=== PATIENT | female | born 1930 | race Caucasian/White ===

== ENCOUNTER 2017-08-24 12:57 | Inpatient (IN) | payer MEDICARE ==
--- NOTE | 2017-08-24 13:30 | ED Physician Chart ---
ED Chief Complaint/HPI - Patient Information Date Seen:: 08/24/17 Time Seen:: 13:10 Chief Complaint:: Syncope with Multiple Falls History of Present Illness:: onset x one week of multiple falls and syncope with back pain; no report of H/As , neck pain, C/P, SOB, Abd. pain, A/N/V/D/C, fever, chills, or urinary s/s Allergies:: Allergies Allergy/AdvReac Type Severity Reaction Status Date / Time cephalexin [From Keflex] AdvReac Verified 08/24/17 13:10 Vitals:: Vital Signs - 8 hr 08/24/17 13:10 Temp 98.3 F HR 66 RR 14 BP 124/64 O2 Sat % 97 Historian:: Patient, EMS Review:: Nurse's Note Reviewed, Old Chart Reviewed, EMS run form Reviewed, Transfer documents Reviewed ED Review of Systems - Review of Systems General/Constitutional: Fever, No chills, No weight loss, Weakness, No diaphoresis, No edema, No loss of appetite Skin: Skin lesions, No rash, No bruising Head: No headache, No light-headedness Eyes: No loss of vision, No pain, No diplopia ENT: No earache, No nasal drainage, No sore throat, No tinnitus Neck: No neck pain, No swelling, No thyromegaly, No stiffness, No mass noted Cardio Vascular: No chest pain, No palpitations, No PND, No orthopnea, No edema Pulmonary: No SOB, No cough, No sputum, No wheezing GI: No nausea, No vomiting, No diarrhea, No pain, No melena, No hematochezia, No constipation, No hematemesis G/U: No dysuria, No frequency, No hematuria Musculoskeletal: Bone or joint pain, Back pain, Muscle pain Endocrine: No polyuria, No polydipsia Psychiatric: No prior psych history, No depression, No anxiety, No suicidal ideation, No homicidal ideation, No auditory hallucination, No visual hallucination Hematopoietic: No bruising, No lymphadenopathy Allergic/Immuno: No urticaria, No angioedema Neurological: Syncope, No focal symptoms, Weakness, No paresthesia, No headache , No seizure, Dizziness, Confusion, Vertigo ED Past Medical History - Past Medical History Obtainable: Yes Past Medical History: HTN, CAD, Dyslipidemia, Arthritis, Dementia Family History: Heart disease, Diabetes Melitus, HTN Social History: Non Smoker, No Alcohol, No Drug Use, Single, Care Facility Surgical History: Appendectomy, Hysterectomy Psychiatricy History: Dementia Medication: Reviewed Family Medical History - Family Member Mother Hx Family Cancer: No Hx Family Stroke: No Hx Family Diabetes: No Hx Family Dementia: No Hx Family AIDS: No Hx Family Hepatitis: No Hx Family Tuberculosis: No ED Physical Exam - Physical Examination General/Constitutional: Awake, Well-developed, well-nourished, Alert, No distress, GCS 15, Non-toxic appearing, Ambulatory Head: Atraumatic Eyes: Lids, conjuctiva normal, PERRL, EOMI Skin: Nl inspection, No rash, No skin lesions, No ecchymosis, Well hydrated, No lymphadenopathy ENMT: External ears, nose nl, Nasal exam nl, Lips, teeth, gums nl Neck: Nontender, Full ROM w/o pain, No JVD, No nuchal rigidity, No bruit, No mass, No stridor Respiratory: Nl effort/Exclusion, Clear to Auscultation, No Wheeze/Rhonchi/Rales Cardio Vascular: RRR, No murmur, gallop, rubs, NL S1 S2 GI: No tenderness/rebounding/guarding, No organomegaly, No hernia, Normal BS's, Nondistended, No mass/bruits, No McBurney tenderness : No CVA tenderness Extremities: No tenderness or effusion, Full ROM, normal strength in all extremities, No edema, Normal digits & nails Neuro/Psych: DTR's symmetric, Normal sensory exam, Normal motor strength, Judgement/insight normal, Mood normal, Normal gait, No focal deficits Other Neuro/Psych comments:: Disoriented and Confused Misc: Normal back, No paraspinal tenderness ED Labs/Radiology/EKG Results - Lab Results Comments:: Na+: 131 - EKG Interpretations EKG Time:: 13:34 Rate & Rhythm: 55; SB Comments:: non-specific st-t changes ED Septic Shock - . Is Septic Shock (SBP<90, OR Lactate>4 mmol\L) present?: No - <6hrs of presentation: Vital Signs: Vital Signs - 8 hr 08/24/17 13:10 Temp 98.3 F HR 66 RR 14 BP 124/64 O2 Sat % 97 ED Reassessment (Disposition) - Reassessment Reassessment Condition:: Improved - Diagnosis Diagnosis:: Dx: hyponatremia; Back Pain; Syncope; S/P Falls; Hip Pain; - Aftercare/Follow up Instructions Aftercare/Follow-Up Instructions:: Counseled pt regarding lab results/diagnosis & need follow up, Counseled pt & family regarding lab results/diagnosis & need follow up - Patient Disposition Discharge/Transfer:: Acute Care w/in this hosp Accepting Physician:: Dr. Morgan Time Called:: 1445 Time Responded:: 14:45 Admitted to:: Telemetry Spoke to:: Dr. Morgan Admitting Medical Physician:: Dr. Morgan Condition at Disposition:: Stable, Improved
[2017-08-24 13:55] LABS: % BASOPHILS 0.6 % (0.0-2.0); % EOSINOPHILS 2.6 % (0.0-5.0); % LYMPHOCYTES 22.9 % (20.0-50.0); % MONOCYTES 9.3 % (2.0-10.0); % NEUTROPHILS 64.6 % (40.0-80.0); HEMATOCRIT 30.9 % (41.0-60); HEMOGLOBIN 10.1 gm/dL (12-16); MEAN CELL VOLUME 89.4 fl (81-100); MEAN CORPUSCULAR HEMOGLOBIN 29.3 pg (27.0-31.0); MEAN CORPUSCULAR HGB CONC 32.7 pg (28.0-36.0); MEAN PLATELET VOLUME 8.1 fl; NEUTROPHILE ABSOLUTE 7.2 Th/cmm (1.8-8.0); PLATELET COUNT 210 Th/cmm (150-400); RED BLOOD COUNT 3.46 Mil/cmm (3.80-5.20); RED CELL DISTRIBUTION WIDTH 16.3 % (11.5-20.0); WHITE BLOOD COUNT 11.1 Th/cmm (4.8-10.8)
[2017-08-24 14:09] LABS: INR 0.89 (0.5-1.4); PROTHROMBIN TIME (TEST) 9.2 SECONDS (9.5-11.5)
[2017-08-24 14:13] LABS: ALB/GLOB RATIO 1.5 (1.0-1.8); ALKALINE PHOSPHATASE 59 U/L (34-104); ANION GAP 8.5 (7.0-16.0); BILIRUBIN,TOTAL 0.8 mg/dL (0.3-1.0); BUN - UREA NITROGEN 40 mg/dL (7-25); BUN/CREATININE RATIO 30.8; CALCIUM SERUM 9.1 mg/dL (8.6-10.3); CARBON DIOXIDE 23.6 mEq/L (21.0-31.0); CHLORIDE 103 mEq/L (98-107); CHOLESTEROL 217 mg/dL (<200); CREATININE - SERUM 1.3 mg/dL (0.6-1.2); GLUCOSE 91 mg/dL (70-105); POTASSIUM SERUM 4.1 mEq/L (3.5-5.1); SGOT 14 U/L (13-39); SGPT/ALT 7 U/L (7-52); SODIUM SERUM 131 mEq/L (136-145); TRIGLYCERIDES 145 mg/dL (<150)
--- NOTE | 2017-08-24 14:34 | Diagnostic Imaging Report ---
CHEST X-RAY: AP view INDICATION: pain COMPARISON: None FINDINGS: Chronic changes are seen with no focal consolidation or effusions. Eight and ninth right posterior rib fractures are seen indeterminate but possibly subacute. No evidence of pneumothorax. Heart size normal. Atherosclerosis is noted. Degenerative changes of the spine are noted. IMPRESSION: No focal consolidation identified Age-indeterminate right eighth and ninth posterior rib fractures probably subacute. Please correlate with clinical findings. No evidence of pneumothorax. Atherosclerotic vascular disease.
--- NOTE | 2017-08-24 15:30 | Diagnostic Imaging Report ---
Pelvis single view Indication: Pain rule out fracture Comparison: Right hip x-ray the same day and CT abdomen and pelvis the same day Findings: Moderate degenerative changes of right hip joint and moderate degenerative changes of the left hip joint is noted. No evidence of acute fracture or dislocation. Degenerative changes of lower lumbar spine are noted. Atherosclerosis is noted. There is 1 cm sclerosis along the right superior acetabulum possibly a bone island. Impression: No evidence of an acute fracture. Degenerative changes. In the setting of trauma, if clinical symptoms persist and there is continued concern for an occult fracture, follow up exams in 5-7 days is suggested.
--- NOTE | 2017-08-24 15:30 | Diagnostic Imaging Report ---
Right hip 2 views Indication: Pain rule out fracture Comparison: Pelvis x-ray the same day Findings: Degenerative changes right hip joint are noted with moderate narrowing of the hip joint at the superior medial aspect. No evidence of acute fracture or dislocation. 1 cm sclerotic density possibly a bone island is seen within the acetabulum. Impression: No evidence of an acute fracture. Degenerative changes. In the setting of trauma, if clinical symptoms persist and there is continued concern for an occult fracture, follow up exams in 5-7 days is suggested.
--- NOTE | 2017-08-24 15:31 | Diagnostic Imaging Report ---
CT abdomen and pelvis without intravenous contrast Indication: Abdominal pain, back pain, rule out aortic aneurysm Comparison: None, Technique: Axial images were obtained from the lung bases to the bilateral proximal femurs without IV contrast. Coronal reconstructions were made. total DLP: 354, CTDI7.4 FINDINGS: There is a 7 mm nodule of the left lung base. Additional 3 mm left basal nodule is noted. Atelectatic and hypodensity changes of the lungs are noted. Chronic changes of the lung bases also noted. Assessment of the solid organs is limited due to lack of IV contrast. No evidence of focal hepatic lesions. There may be a tiny gallstone. No focal splenic lesions. 1CM calcification is seen along the body of the pancreas which may represent pancreatic calcification or splenic artery calcification. No focal adrenal lesions. Mild nonspecific bilateral perinephric inflammatory changes are seen. No hydronephrosis or nephrolithiasis. Distended urinary bladder is noted. There is moderate amount of stool with gas-filled loops of bowel noted. The appendix is not visualized. Heavy atherosclerotic vascular disease of the abdominal aorta and branches are noted. Assessment of the abdominal aorta was limited due to lack of IV contrast. There is no evidence of any aortic aneurysm. No evidence of free fluid or free air. There is large area of high density seen along the right gluteal region measuring 5.1 x 5.3 cm partially visualized with surrounding inflammatory changes. Findings may be due to a large intramuscular hematoma. Chronic appearing right lower rib fractures are noted. Advanced degenerative changes of the spine are seen greatest in the lower lumbar spine with multilevel disc space loss of height. There appears to be transitional vertebral body anatomy. A few sclerotic lesions are seen within the spine and right pelvis probably representing incidental bone islands. No evidence of an acute fracture. IMPRESSION: Large high density mass lesion seen along the right intramuscular gluteal region measuring 5.1 x 5.3 cm. Findings is probably due to a large intramuscular hematoma in this region. Please correlate with clinical findings. Follow-up is recommended to ensure resolution. No evidence of the abdominal aortic aneurysm. Heavy atherosclerotic vascular disease was noted. Note evaluation of the abdominal aorta was limited due to lack of IV contrast. No evidence of acute fracture. Possible tiny gallstone. Ultrasound would further clarify. 7 mm left basal nodule which may be due to infectious inflammatory neoplastic process. Additional 3 mm left basal nodule is also noted. Recommend correlation with old exams if available. Alterably, follow up CT chest in 3-4 months is recommended for further assessment. Small scar densities of the spine and pelvis probably representing incidental bone island. Consider follow surveillance indicated Degenerative changes. Please refer to above for complete details.
--- NOTE | 2017-08-24 15:31 | Diagnostic Imaging Report ---
Head CT without intravenous contrast Indication: Syncope Comparison: None Technique: Axial images were obtained from the vertex to the skull base without IV contrast. Coronal reconstructions were made. Total DLP: 558, CTDI33 FINDINGS: Images of the brain obtained without contrast demonstrate no evidence of an acute hemorrhage. Atrophy is noted. Moderate supratentorial white matter disease is noted. Chronic appearing left basal ganglial lacunar infarct is noted. The ventricles and basal cisterns are patent. No mass effect or midline shift. Atherosclerosis is noted. There is mucosal thickening of the paranasal sinuses. Small amount of fluid is seen within the left mastoid air cells. IMPRESSION: No evidence of an acute intracranial hemorrhage. Atrophy. Moderate supratentorial white matter disease which is nonspecific and may be due to chronic microvessel ischemia. Chronic appearing lacunar left basal ganglia infarct. Atherosclerotic vascular disease. Mild left mastoid air cell disease.
[2017-08-24] MEDS ORDERED: Maalox 30 mL Cup PO PRN (19:13)
[2017-08-24] MEDS ORDERED: Ipratropium Neb 0.5 mg/2.5 mL UD IH PRN (19:13)
[2017-08-24] MEDS ORDERED: Albuterol Nebulizer 2.5mg/3mL HHN PRN (19:13)
[2017-08-24] MEDS ORDERED: D5-0.45NS 1,000 ML IV SCH (19:15)
[2017-08-25 03:09] VITALS: BP 149/42
[2017-08-25 06:00] LABS: % BASOPHILS 0.5 % (0.0-2.0); % EOSINOPHILS 3.7 % (0.0-5.0); % LYMPHOCYTES 20.2 % (20.0-50.0); % MONOCYTES 10.1 % (2.0-10.0); % NEUTROPHILS 65.5 % (40.0-80.0); HEMOGLOBIN 9.6 gm/dL (12-16); MEAN CELL VOLUME 89.7 fl (81-100); MEAN CORPUSCULAR HEMOGLOBIN 30.8 pg (27.0-31.0); MEAN CORPUSCULAR HGB CONC 34.3 pg (28.0-36.0); MEAN PLATELET VOLUME 8.8 fl; PLATELET COUNT 220 Th/cmm (150-400); RED BLOOD COUNT 3.12 Mil/cmm (3.80-5.20); RED CELL DISTRIBUTION WIDTH 15.8 % (11.5-20.0); WHITE BLOOD COUNT 10.8 Th/cmm (4.8-10.8)
[2017-08-25 06:23] LABS: ANION GAP 8.4 (7.0-16.0); BUN - UREA NITROGEN 40 mg/dL (7-25); BUN/CREATININE RATIO 33.3; CALCIUM SERUM 8.7 mg/dL (8.6-10.3); CARBON DIOXIDE 26.2 mEq/L (21.0-31.0); CHLORIDE 104 mEq/L (98-107); CREATININE - SERUM 1.2 mg/dL (0.6-1.2); GLUCOSE 95 mg/dL (70-105); POTASSIUM SERUM 4.6 mEq/L (3.5-5.1); SODIUM SERUM 134 mEq/L (136-145)
[2017-08-25 07:23] LABS: URINE BILIRUBIN NEGATIVE (NEGATIVE); URINE BLOOD TRACE (NEGATIVE); URINE COLOR YELLOW; URINE GLUCOSE (UA) NEGATIVE (NEGATIVE); URINE KETONE TRACE mg/dL (NEGATIVE)
[2017-08-25 07:24] LABS: URINE PROTEIN NEGATIVE (NEGATIVE); URINE UROBILINOGEN 0.2 E.U./dL (0.2 - 1.0)
[2017-08-25 07:28] LABS: URINE BACTERIA FEW /hpf (NONE SEEN); URINE EPITHELIAL CELLS MODERATE /lpf (FEW); URINE WBC 0-2 /hpf (0-5)
[2017-08-25 08:21] LABS: TSH 2.76 uIU/ml (0.34-5.60)
--- NOTE | 2017-08-25 11:51 | Internal Medicine Prog Note ---
Internal Medicine Subjective - Subjective Service Date: 08/25/17 ([facility] [id number]) Internal Medicine Objective - Results Result Diagrams: 08/25/17 05:17 08/25/17 05:17 Recent Labs: Laboratory Last Values WBC 10.8 Th/cmm (4.8-10.8) 08/25/17 05:17 RBC 3.12 Mil/cmm (3.80-5.20) L 08/25/17 05:17 Hgb 9.6 gm/dL (12-16) L 08/25/17 05:17 Hct 28.0 % (41.0-60) L 08/25/17 05:17 MCV 89.7 fl (81-100) 08/25/17 05:17 MCH 30.8 pg (27.0-31.0) 08/25/17 05: MCHC Differential 34.3 pg (28.0-36.0) 08/25/17 05:17 RDW 15.8 % (11.5-20.0) 08/25/17 05:17 Plt Count 220 Th/cmm (150-400) 08/25/17 05:17 MPV 8.8 fl 08/25/17 05:17 Neutrophils % 65.5 % (40.0-80.0) 08/25/17 05:17 Lymphocytes % 20.2 % (20.0-50.0) 08/25/17 05:17 Monocytes % 10.1 % (2.0-10.0) H 08/25/17 05:17 Eosinophils % 3.7 % (0.0-5.0) 08/25/17 05:17 Basophils % 0.5 % (0.0-2.0) 08/25/17 05:17 PT 9.2 SECONDS (9.5-11.5) L 08/24/17 13:48 INR 0.89 (0.5-1.4) 08/24/17 13:48 Sodium 134 mEq/L (136-145) L 08/25/17 05:17 Potassium 4.6 mEq/L (3.5-5.1) 08/25/17 05:17 Chloride 104 mEq/L (98-107) 08/25/17 05:17 Carbon Dioxide 26.2 mEq/L (21.0-31.0) 08/25/17 05:17 Anion Gap 8.4 (7.0-16.0) 08/25/17 05:17 BUN 40 mg/dL (7-25) H 08/25/17 05:17 Creatinine 1.2 mg/dL (0.6-1.2) 08/25/17 05:17 Est GFR ( Amer) TNP 08/25/17 05:17 Est GFR (Non-Af Amer) TNP 08/25/17 05:17 BUN/Creatinine Ratio 33.3 08/25/17 05:17 Glucose 95 mg/dL (70-105) 08/25/17 05:17 Calcium 8.7 mg/dL (8.6-10.3) 08/25/17 05:17 Total Bilirubin 0.8 mg/dL (0.3-1.0) 08/24/17 13:48 AST 14 U/L (13-39) 08/24/17 13:48 ALT 7 U/L (7-52) 08/24/17 13:48 Alkaline Phosphatase 59 U/L (34-104) 08/24/17 13:48 Ammonia 28 umol/L (16-53) 08/25/17 05:17 Creatine Kinase 179 U/L (30-223) 08/24/17 13:48 Troponin I 0.01 ng/mL (0.01-0.05) 08/24/17 13:48 B-Natriuretic Peptide 63.4 pg/mL (5.0-100.0) 08/24/17 13:48 Total Protein 5.9 gm/dL (6.0-8.3) L 08/24/17 13:48 Albumin 3.5 gm/dL (3.7-5.3) L 08/24/17 13:48 Globulin 2.4 gm/dL 08/24/17 13:48 Albumin/Globulin Ratio 1.5 (1.0-1.8) 08/24/17 13:48 Triglycerides 145 mg/dL (<150) 08/24/17 13:48 Cholesterol 217 mg/dL (<200) H 08/24/17 13:48 LDL Cholesterol Direct 161 mg/dL (75-193) 08/24/17 13:48 HDL Cholesterol 53 mg/dL (23-92) 08/24/17 13:48 TSH 2.76 uIU/ml (0.34-5.60) 08/25/17 05:17 Urine Source RANDOM 08/25/17 04:40 Urine Color YELLOW 08/25/17 04:40 Urine Clarity CLEAR (CLEAR) 08/25/17 04:40 Urine pH 6.0 (4.6 - 8.0) 08/25/17 04:40 Ur Specific [place] 1.015 (1.005-1.030) 08/25/17 04:40 Urine Protein NEGATIVE mg/dL (NEGATIVE) 08/25/17 04:40 Urine Glucose (UA) NEGATIVE mg/dL (NEGATIVE) 08/25/17 04:40 Urine Ketones TRACE mg/dL (NEGATIVE) 08/25/17 04:40 Urine Blood TRACE (NEGATIVE) 08/25/17 04:40 Urine Nitrate NEGATIVE (NEGATIVE) 08/25/17 04:40 Urine Bilirubin NEGATIVE (NEGATIVE) 08/25/17 04:40 Urine Ictotest NEGATIVE (NEGATIVE) 08/25/17 04:40 Urine Urobilinogen 0.2 E.U./dL (0.2 - 1.0) 08/25/17 04:40 Ur Leukocyte Esterase NEGATIVE (NEGATIVE) 08/25/17 04:40 Urine RBC 2-5 /hpf (0-5) 08/25/17 04:40 Urine WBC 0-2 /hpf (0-5) 08/25/17 04:40 Ur Epithelial Cells MODERATE /lpf (FEW) 08/25/17 04:40 Urine Bacteria FEW /hpf (NONE SEEN) 08/25/17 04:40 Urine Mucus FEW /lpf (FEW) 08/25/17 04:40 - Physical Exam Vitals and I&O: Vital Signs Temp 98.7 F 08/25/17 10:17 Pulse 67 08/25/17 10:17 Resp 19 08/25/17 10:17 BP 147/63 08/25/17 10:17 Pulse Ox 98 08/25/17 10:17 Intake & Output 08/24/17 08/25/17 08/25/17 18:59 06:59 18:59 Intake Total 200 Balance 200 Weight (lbs) 125 lb Intake: Oral 200 Other: # Voids 2 # Bowel Movements 0 Active Medications: Current Medications Acetaminophen (Tylenol) 650 mg PO Q4H PRN PRN Reason: Pain Or Fever above 101 Stop: 10/23/17 19:12 Al Hydrox/Mg Hydrox/Simethicone (Maalox) 30 ml PO Q6H PRN PRN Reason: Dyspepsia Stop: 10/23/17 19:12 Albuterol Sulfate (Albuterol 2.5mg/3ml Neb Ud) 2.5 mg HHN Q2HRT PRN PRN Reason: Shortness of Breath or Wheeze Stop: 10/23/17 19:12 Allopurinol (Zyloprim) 100 mg PO DAILY CASSI Stop: 10/24/17 08:59 Last Admin: 08/25/17 09:01 Dose: 100 mg Cholecalciferol (Vitamin D3) 4,000 iu PO DAILY CASSI Stop: 10/24/17 08:59 Last Admin: 08/25/17 09:01 Dose: 4,000 iu Cyanocobalamin (Vitamin B12) 1,000 mcg PO DAILY CASSI Stop: 10/24/17 08:59 Last Admin: 08/25/17 09:01 Dose: 1,000 mcg Dextrose/Sodium Chloride (D5-0.45ns) 1,000 mls @ 80 mls/hr IV .[id number] CASSI Stop: 10/23/17 19:14 Last Admin: 08/24/17 20:16 Dose: 80 mls/hr Ipratropium [place] (Atrovent Neb 0.5mg/2.5ml) 0.5 mg IH Q2HRT PRN PRN Reason: Shortness of Breath or Wheeze Stop: 10/23/17 19:12 Losartan Potassium (Cozaar) 50 mg PO DAILY REPLACED BY [facility] Stop: 10/24/17 08:59 Last Admin: 08/25/17 09:01 Dose: 50 mg Memantine (Namenda) 10 mg PO BID CASSI Stop: 10/24/17 08:59 Last Admin: 08/25/17 09:01 Dose: 10 mg Mirtazapine (Remeron) 15 mg PO HS CASSI PRN Reason: Protocol Stop: 10/23/17 20:59 Last Admin: 08/24/17 20:39 Dose: 15 mg Ondansetron HCl (Zofran) 4 mg IV Q8H PRN PRN Reason: Nausea / Vomiting Stop: 10/23/17 19:12 Tramadol HCl (Ultram) 50 mg PO DAILY PRN PRN Reason: Pain (Mild) Stop: 10/23/17 19:10 Last Admin: 08/24/17 20:39 Dose: 50 mg Internal Medicine Assmt/Plan - Assessment Assessment: Acute Back pain Generalized Weakness Failure to thrive HTN CAD Dyslipidemia Arthritis Dementia Hyponatremia Acute Kidney Injury
[2017-08-25] MEDS ORDERED: D5-0.45NS 1,000 ML IV SCH (11:52)
--- NOTE | 2017-08-25 12:06 | Diagnostic Imaging Report ---
Carotid ultrasound HISTORY: Syncope COMPARISON: None Technique: Longitudinal and transverse sonographic sector images of the carotid arteries were obtained with doppler analysis. FINDINGS: Exam of the right side demonstrates mild to moderate generalized atherotic vascular disease. No evidence of elevated velocities. Exam of the left-sided demonstrates mild to moderate atherosclerotic vascular disease. Increased velocities of the left proximal common carotid arteries noted at 161cm/second. The velocity ratios are within normal limits. Antegrade vertebral artery flow is demonstrated bilaterally. IMPRESSION: Mild to moderate generalized atherosclerotic vascular disease. There is increased velocity of the left proximal common carotid artery which is probably related to vessel tortuosity and technical factors. Otherwise no evidence of hemodynamically significant stenosis.
--- NOTE | 2017-08-25 14:42 | History & Physical ---
ADMIT DATE: 08/24/2017 HISTORY OF PRESENT ILLNESS: This is an 87-year-old female who was sent here to [facility] for 1-week history of multiple falls, associated with back pain. The patient is a poor historian; however, the patient is able to express her pain level. The patient does not have any fevers or any chills or any abdominal pain. PAST MEDICAL HISTORY: Hypertension, CAD, dyslipidemia, arthritis, dementia. SOCIAL HISTORY: The patient lives in [facility], requiring 24-hour nursing care. SURGICAL HISTORY: Appendectomy and hysterectomy. MEDICATIONS: Please see medication sheet. REVIEW OF SYSTEMS: GENERAL: Denies any fever, any chills. CARDIOVASCULAR: Denies chest pain. RESPIRATORY: Denies any shortness of breath. GENITOURINARY: Denies any dysuria. MUSCULOSKELETAL: The patient complains of back pain. All other systems are reviewed by me and are negative. PHYSICAL EXAMINATION: GENERAL: This is an elderly female awake with some confusion in no apparent distress. VITAL SIGNS: Temperature 99.7, heart rate 67, blood pressure 147/62, respirations 19, O2 98%. HEENT: Head; normocephalic, atraumatic. NECK: Supple. No mass. LUNGS: Clear bilaterally and rhythm. ABDOMEN: Soft and nontender. LABORATORY DATA: WBC 10.8, H and H 9.6 and 28.0, platelets 220. Sodium 134, potassium 4.6, chloride 104, BUN 40, creatinine 1.2. Albumin 3.5. The patient has a urinalysis done and negative for any UTI. DIAGNOSTICS: The patient had a CT of abdomen and pelvis done and the impression is large high density mass lesions seen along the right intermuscular gluteal region measuring 5.1 x 5.3 cm. Finding is probably due to a large intermuscular hematoma in this region. No evidence of abdominal aortic aneurysm. Heavy atherosclerotic vascular disease was noted. No evidence of acute fracture, 7 mm left basal nodule, which may due to infectious, inflammatory or neoplastic process. Additional 3 mm left basal nodules also noted. Recommended correlation with old exam if available. Small ____ densities of the spine and pelvis, probably representing incidental island. Consider followup surveillance indicated, degenerative changes. The patient also had a chest x-ray done and the impression is no focal consolidation, atherosclerotic vascular disease. CT of the head was obtained. Impression is no evidence of acute intracranial hemorrhage. Hip x-ray was also done and the impression is no evidence of acute fracture. X-ray of the pelvis was also done as well. Impression, no evidence of acute fracture. ASSESSMENT: Acute back pain, generalized weakness, failure to thrive, hypertension, coronary artery disease, dyslipidemia, arthritis, dementia, frequent falls, hyponatremia, acute kidney injury. PLAN: We will get patient aggressive IV fluids. We will monitor patient's BUN and creatinine. We will get back PT eval. Also, do carotid ultrasound as well. Fall precautions will be initiated. Pain management. We will continue to monitor this patient. JOB# [id number]
--- NOTE | 2017-08-25 22:51 | Consultation ---
DATE OF CONSULTATION: 08/25/2017 HISTORY OF PRESENT ILLNESS: An 87-year-old female with multiple falls, syncope. The patient apparently yelling, screaming, trying to get up, on a one-to-one, confused, disoriented. Does not really what is going on or why she is here. PAST PSYCHIATRIC HISTORY: Unclear. SOCIAL HISTORY: Born in [place], , 3 children. She has an address in [place]. She states her children living in [place]. Apparently, the patient does have a history of dementia. MENTAL STATUS EXAMINATION: Stated age. Fair eye contact. Speech rambling. Yelling, nonsensical. Mood "okay." Affect flat. Thought processes were disoriented. No overt SI or HI. Unclear psychotic symptoms. Poor insight, poor judgment. PROVISIONAL DIAGNOSIS: History of dementia; psychosis, unspecified; dementia with behavioral disturbances. RECOMMENDATIONS AND PLAN: The patient will likely benefit from Geropsych placement as she appears unstable at this time, confused, disoriented with behaviors. PLAN: Continue Namenda, continue Remeron, continue orientation. She may need medication adjustments. JOB# [id number]
[2017-08-26 05:42] LABS: % BASOPHILS 0.5 % (0.0-2.0); % EOSINOPHILS 1.8 % (0.0-5.0); % LYMPHOCYTES 14.9 % (20.0-50.0); % MONOCYTES 9.7 % (2.0-10.0); % NEUTROPHILS 73.1 % (40.0-80.0); HEMATOCRIT 30.2 % (41.0-60); HEMOGLOBIN 10.3 gm/dL (12-16); MEAN CORPUSCULAR HEMOGLOBIN 30.5 pg (27.0-31.0); MEAN CORPUSCULAR HGB CONC 33.9 pg (28.0-36.0); MEAN PLATELET VOLUME 8.7 fl; NEUTROPHILE ABSOLUTE 8.4 Th/cmm (1.8-8.0); PLATELET COUNT 252 Th/cmm (150-400); RED BLOOD COUNT 3.36 Mil/cmm (3.80-5.20); RED CELL DISTRIBUTION WIDTH 16.4 % (11.5-20.0); WHITE BLOOD COUNT 11.5 Th/cmm (4.8-10.8)
[2017-08-26 05:50] LABS: ALB/GLOB RATIO 1.4 (1.0-1.8); ALKALINE PHOSPHATASE 67 U/L (34-104); ANION GAP 9.2 (7.0-16.0); BILIRUBIN,TOTAL 0.8 mg/dL (0.3-1.0); BUN - UREA NITROGEN 30 mg/dL (7-25); BUN/CREATININE RATIO 33.3; CALCIUM SERUM 9.5 mg/dL (8.6-10.3); CHLORIDE 104 mEq/L (98-107); CREATININE - SERUM 0.9 mg/dL (0.6-1.2); GLUCOSE 101 mg/dL (70-105); POTASSIUM SERUM 4.2 mEq/L (3.5-5.1); SGOT 21 U/L (13-39); SGPT/ALT 11 U/L (7-52); SODIUM SERUM 135 mEq/L (136-145)
--- NOTE | 2017-08-26 08:55 | Progress Notes ---
DATE: 08/26/2017 SUBJECTIVE: Chart reviewed and the patient interviewed. Also discussed the patient's condition with the staff and reviewed records and labs. The patient did not sleep most of last night. She also is still restless and she is still easily agitated. She also is having difficulty following any of staff directions. The patient also is easily agitated and aggressive with the staff. She also is still in angry and in irritable moods. Otherwise, the patient is compliant with taking her medications with no side effects of medications. She is currently not taking any antipsychotic medications. ASSESSMENT: The patient is still confused and agitated. TREATMENT PLAN: We will monitor her behavior and her condition closely. Also, we will start the patient on Seroquel and we will adjust the dose. Also, the patient will need to be in Geropsych to monitor her behavior and to work on her agitation and irritability. [facility]# [id number]
--- NOTE | 2017-08-26 12:17 | Internal Medicine Prog Note ---
Internal Medicine Subjective - Subjective Service Date: 08/26/17 ([facility] [id number]) Internal Medicine Objective - Results Result Diagrams: 08/26/17 04:53 08/26/17 04:53 Recent Labs: Laboratory Last Values WBC 11.5 Th/cmm (4.8-10.8) H 08/26/17 04:53 RBC 3.36 Mil/cmm (3.80-5.20) L 08/26/17 04:53 Hgb 10.3 gm/dL (12-16) L 08/26/17 04:53 Hct 30.2 % (41.0-60) L 08/26/17 04:53 MCV 90.0 fl (81-100) 08/26/17 04:53 MCH 30.5 pg (27.0-31.0) 08/26/17 04:53 MCHC Differential 33.9 pg (28.0-36.0) 08/26/17 04:53 RDW 16.4 % (11.5-20.0) 08/26/17 04:53 Plt Count 252 Th/cmm (150-400) 08/26/17 04:53 MPV 8.7 fl 08/26/17 04:53 Neutrophils % 73.1 % (40.0-80.0) 08/26/17 04:53 Lymphocytes % 14.9 % (20.0-50.0) L 08/26/17 04:53 Monocytes % 9.7 % (2.0-10.0) 08/26/17 04:53 Eosinophils % 1.8 % (0.0-5.0) 08/26/17 04:53 Basophils % 0.5 % (0.0-2.0) 08/26/17 04:53 PT 9.2 SECONDS (9.5-11.5) L 08/24/17 13:48 INR 0.89 (0.5-1.4) 08/24/17 13:48 Sodium 135 mEq/L (136-145) L 08/26/17 04:53 Potassium 4.2 mEq/L (3.5-5.1) 08/26/17 04:53 Chloride 104 mEq/L (98-107) 08/26/17 04:53 Carbon Dioxide 26.0 mEq/L (21.0-31.0) 08/26/17 04:53 Anion Gap 9.2 (7.0-16.0) 08/26/17 04:53 BUN 30 mg/dL (7-25) H 08/26/17 04:53 Creatinine 0.9 mg/dL (0.6-1.2) 08/26/17 04:53 Est GFR ( Amer) TNP 08/26/17 04:53 Est GFR (Non-Af Amer) TNP 08/26/17 04:53 BUN/Creatinine Ratio 33.3 08/26/17 04:53 Glucose 101 mg/dL (70-105) 08/26/17 04:53 Calcium 9.5 mg/dL (8.6-10.3) 08/26/17 04:53 Total Bilirubin 0.8 mg/dL (0.3-1.0) 08/26/17 04:53 AST 21 U/L (13-39) 08/26/17 04:53 ALT 11 U/L (7-52) 08/26/17 04:53 Alkaline Phosphatase 67 U/L (34-104) 08/26/17 04:53 Ammonia 28 umol/L (16-53) 08/25/17 05:17 Creatine Kinase 179 U/L (30-223) 08/24/17 13:48 Troponin I 0.01 ng/mL (0.01-0.05) 08/24/17 13:48 B-Natriuretic Peptide 63.4 pg/mL (5.0-100.0) 08/24/17 13:48 Total Protein 6.4 gm/dL (6.0-8.3) 08/26/17 04:53 Albumin 3.7 gm/dL (3.7-5.3) 08/26/17 04:53 Globulin 2.7 gm/dL 08/26/17 04:53 Albumin/Globulin Ratio 1.4 (1.0-1.8) 08/26/17 04:53 Triglycerides 145 mg/dL (<150) 08/24/17 13:48 Cholesterol 217 mg/dL (<200) H 08/24/17 13:48 LDL Cholesterol Direct 161 mg/dL (75-193) 08/24/17 13:48 HDL Cholesterol 53 mg/dL (23-92) 08/24/17 13:48 TSH 2.76 uIU/ml (0.34-5.60) 08/25/17 05:17 Urine Source RANDOM 08/25/17 04:40 Urine Color YELLOW 08/25/17 04:40 Urine Clarity CLEAR (CLEAR) 08/25/17 04:40 Urine pH 6.0 (4.6 - 8.0) 08/25/17 04:40 Ur Specific [place] 1.015 (1.005-1.030) 08/25/17 04:40 Urine Protein NEGATIVE mg/dL (NEGATIVE) 08/25/17 04:40 Urine Glucose (UA) NEGATIVE mg/dL (NEGATIVE) 08/25/17 04:40 Urine Ketones TRACE mg/dL (NEGATIVE) 08/25/17 04:40 Urine Blood TRACE (NEGATIVE) 08/25/17 04:40 Urine Nitrate NEGATIVE (NEGATIVE) 08/25/17 04:40 Urine Bilirubin NEGATIVE (NEGATIVE) 08/25/17 04:40 Urine Ictotest NEGATIVE (NEGATIVE) 08/25/17 04:40 Urine Urobilinogen 0.2 E.U./dL (0.2 - 1.0) 08/25/17 04:40 Ur Leukocyte Esterase NEGATIVE (NEGATIVE) 08/25/17 04:40 Urine RBC 2-5 /hpf (0-5) 08/25/17 04:40 Urine WBC 0-2 /hpf (0-5) 08/25/17 04:40 Ur Epithelial Cells MODERATE /lpf (FEW) 08/25/17 04:40 Urine Bacteria FEW /hpf (NONE SEEN) 08/25/17 04:40 Urine Mucus FEW /lpf (FEW) 08/25/17 04:40 - Physical Exam Vitals and I&O: Vital Signs Temp 98.6 F 08/26/17 10:20 Pulse 74 08/26/17 10:20 Resp 16 08/26/17 10:20 BP 149/60 08/26/17 10:20 Pulse Ox 92 08/26/17 10:20 Intake & Output 08/25/17 08/26/17 08/26/17 18:59 06:59 18:59 Intake Total 150 300 Balance 150 300 Weight (lbs) 125 lb 125 lb Intake: Oral 150 300 Other: # Voids 3 # Bowel Movements 0 Active Medications: Current Medications Acetaminophen (Tylenol) 650 mg PO Q4H PRN PRN Reason: Pain Or Fever above 101 Stop: 10/23/17 19:12 Al Hydrox/Mg Hydrox/Simethicone (Maalox) 30 ml PO Q6H PRN PRN Reason: Dyspepsia Stop: 10/23/17 19:12 Albuterol Sulfate (Albuterol 2.5mg/3ml Neb Ud) 2.5 mg HHN Q2HRT PRN PRN Reason: Shortness of Breath or Wheeze Stop: 10/23/17 19:12 Allopurinol (Zyloprim) 100 mg PO DAILY CASSI Stop: 10/24/17 08:59 Last Admin: 08/26/17 09:36 Dose: 100 mg Cholecalciferol (Vitamin D3) 4,000 iu PO DAILY [facility]SI Stop: 10/24/17 08:59 Last Admin: 08/26/17 09:35 Dose: 4,000 iu Cyanocobalamin (Vitamin B12) 1,000 mcg PO DAILY [facility]SI Stop: 10/24/17 08:59 Last Admin: 08/26/17 09:35 Dose: 1,000 mcg Dextrose/Sodium Chloride (D5-0.45ns) 1,000 mls @ 100 mls/hr IV .Q10H CASSI Stop: 10/24/17 11:51 Ipratropium [place] (Atrovent Neb 0.5mg/2.5ml) 0.5 mg IH Q2HRT PRN PRN Reason: Shortness of Breath or Wheeze Stop: 10/23/17 19:12 Lorazepam (Ativan) 0.5 mg PO Q6HR PRN; Protocol PRN Reason: Agitation Stop: 10/24/17 14:05 Last Admin: 08/25/17 21:33 Dose: 0.5 mg Losartan Potassium (Cozaar) 50 mg PO DAILY [facility]SI Stop: 10/24/17 08:59 Last Admin: 08/26/17 09:36 Dose: 50 mg Memantine (Namenda) 10 mg PO BID [facility]SI Stop: 10/24/17 08:59 Last Admin: 08/26/17 09:36 Dose: 10 mg Mirtazapine (Remeron) 15 mg PO HS CASSI PRN Reason: Protocol Stop: 10/23/17 20:59 Last Admin: 08/25/17 20:34 Dose: 15 mg Ondansetron HCl (Zofran) 4 mg IV Q8H PRN PRN Reason: Nausea / Vomiting Stop: 10/23/17 19:12 Quetiapine Fumarate (Seroquel) 25 mg PO BID CASSI PRN Reason: Protocol Stop: 10/25/17 08:59 Tramadol HCl (Ultram) 50 mg PO DAILY PRN PRN Reason: Pain (Mild) Stop: 10/23/17 19:10 Last Admin: 08/24/17 20:39 Dose: 50 mg Internal Medicine Assmt/Plan - Assessment Assessment: Acute Back pain Generalized Weakness Failure to thrive HTN CAD Dyslipidemia Arthritis Dementia Hyponatremia Acute Kidney Injury Nutritional Asmnt/Malnutr-PDOC - Dietary Evaluation Malnutrition Findings (Please click <Entered> for more info): Nutritional Asmnt/Malnutrition Start: 08/25/17 15: 30 Text: Status: Complete Freq: Document 08/25/17 15:37 GSUN (Rec: 08/25/17 15:54 GSUN [id number]) Nutritional Asmnt/Malnutrition Patient General Information Nutritional Screening Consult Diagnosis Acute back pain, generalized weakness, FTT, frequent falls, CONNIE Pertinent Medical Hx/Surgical Hx HTN, CAD, dyslipidemia, arthritis, dementia Subjective Information 87 year old female from SNF. RD consult for no appetite to eat. Pt admitted due to frequent falls. Visited pt during meal time. Pt was pleasant, forgetful, demented. Pt denied falling, unable to recall breakfast, stated good appetite. EFFICIENCY MANAGER at bedside stated pt ate 40% of breakfast without difficulties. Pt report UBW 138lb couple months ago, questionable. Grinding Wheel Facer brought pt lunch to bedside, pt refused to eat at this time , stating she needs to go back to her room to meet with her . Pt appeared lean, mild wasting to chest, loose skin to arms, muscle and strength present. Current Diet Order/ Nutrition Support Regular, low sodium Pertinent Medications Vitamin D3, Vitamin B12, D5-0. 45ns, Remeron, Zofran Pertinent Labs Reviewed. Nutritional Hx/Data Height 5 ft 5 in Height (Calculated Centimeters) 165.1 Current Weight (lbs) 122 lb 6.4 oz Weight (Calculated Kilograms) 55.5 Weight (Calculated Grams) 59678.7 [place] Body Weight 125 Weight Status Approriate GI Symptoms Food Allergies No Cultural/Ethnic/Shinto Belief Pt dislikes onion. Skin Integrity/Comment: [place] 16. Bruises. Estimated Nutritional Goals Calories/Kcals/Kg IBW 125lb/56.8kg Kcals Calculated 1420-1704kcal (25-30kcal/kg) Protein Calculated 57g (1g/kg) Fluid: ml 1420-1704ml (1ml/kcal) Nutritional Problem 1. Problem Problem Inadequate oral food beverage intake related to Etiology cogntion aeb Signs/Symptoms: pt refusing to eat (demented, confused) Malnutrition Alert Body Fat Depletion (Non-Severe) Mild Depletion Muscle Mass (Non-Severe) Mild Depletion Intervention/Recommendation Comments 1. Continue with current diet order. 2. Nursing staff to reorient pt, provide supervision with meals. Pt currently confused, refusing meals, stating she needs to go eat in her room with her . Expected Outcomes/Goals Expected Outcomes/Goals 1. PO intake to meet at least 100% of estimated nutritinoal needs.
--- NOTE | 2017-08-26 18:20 | Discharge Summary ---
DATE OF DISCHARGE: 08/26/[address] Aly Morgan. DISCHARGE DIAGNOSES: Acute back pain, generalized weakness, failure to thrive, hypertension, coronary artery disease, dyslipidemia, arthritis, dementia, frequent falls, hyponatremia, acute kidney injury. HISTORY OF PRESENT ILLNESS: This is an 87-year-old female, who was sent here to [facility] for 1-week history of multiple falls associated with back pain. The patient is a poor historian, however, the patient is able to express her pain level. PHYSICAL EXAMINATION: GENERAL: The patient is an elderly female, awake with confusion, no apparent distress. VITAL SIGNS: Stable. HEENT: Normocephalic, atraumatic. NECK: Supple. No mass. LUNGS: Clear bilaterally. ABDOMEN: Soft, nontender. HOSPITAL COURSE: During the hospital stay, the patient was admitted to the med/surg unit. The patient had a chest x-ray done and no focal consolidation. CT of the head was also obtained, impression was no acute intracranial hemorrhage. The patient had a hip x-ray and bilateral wrists x-ray and it was negative for any fractures. The patient also had a PT evaluation. We are monitoring the patient's BUN and creatinine. We kept her on IV fluids for hydration. The patient was being seen by psychiatrist, Dr. James. The patient is medically stable. The patient is stable to be discharged to the Geropsych unit. CONDITION UPON DISCHARGE: Fair. [facility] JOB# [id number]
[2017-08-27 06:08] LABS: FOLIC ACID 7.8 ng/mL (>3.0)
== END 2017-08-26 13:53 | DRG 683 ==
LOC: ER 12:57 → MSI 15:35
PROVIDERS: ADMIT Internal Medicine; ATTEND Internal Medicine
DX: N17.9 Acute kidney failure, unspecified (principal); E87.1 Hypo-osmolality and hyponatremia; F03.91 Unspecified dementia, unspecified severity, with behavioral disturbance; E86.0 Dehydration; M54.9 Dorsalgia, unspecified; R62.7 Adult failure to thrive; R55 Syncope and collapse; I10 Essential (primary) hypertension; R53.1 Weakness; E78.5 Hyperlipidemia, unspecified; I25.10 Atherosclerotic heart disease of native coronary artery without angina pectoris; M19.90 Unspecified osteoarthritis, unspecified site; F29 Unspecified psychosis not due to a substance or known physiological condition; Z88.1 Allergy status to other antibiotic agents; Z82.49 Family history of ischemic heart disease and other diseases of the circulatory system; Z83.3 Family history of diabetes mellitus; Z90.49 Acquired absence of other specified parts of digestive tract; Z90.710 Acquired absence of both cervix and uterus; Z91.81 History of falling
CPT/HCPCS: 36415-UA; 70450-TC; 71010-TC; 72170-TC; 73501; 80048-TC; 80053-TC; 80061-TC; 81001-TC; 82140-TC; 82550-TC; 82607-90; 82746-90; 83880-TC; 84443-TC; 84484-TC; 85025-TC; 85610-TC; 86592-TC; 93005; 93880-TC; 94760; 97530; X3904; Z7610

== ENCOUNTER 2017-08-26 14:36 | Inpatient (IN) | payer MEDICARE ==
[2017-08-26 15:16] VITALS: BP 169/71
[2017-08-26] MEDS ORDERED: Maalox 30 mL Cup PO PRN (17:52)
[2017-08-26] MEDS ORDERED: Ipratropium Neb 0.5 mg/2.5 mL UD HHN PRN (17:57)
[2017-08-26] MEDS ORDERED: Albuterol Nebulizer 2.5mg/3mL HHN SCH (19:00)
--- NOTE | 2017-08-27 00:06 | Psychosocial Evaluation ---
DATE OF SERVICE: 08/26/2017 JUSTIFICATION FOR HOSPITALIZATION: The patient brought in from Med/Surg, yelling, screaming, trying to get up, disoriented to place. She does not know what is going on or the year. The patient is not safe for a lower level of care. She is disoriented, cannot give me a plan for basic food, clothing, and long-term. PAST MEDICAL HISTORY: Unclear. SOCIAL HISTORY: Born in [place], . She has 3 children, her children live in [place]. The patient apparently has history of dementia. MENTAL STATUS EXAMINATION: Stated age. Fair eye contact. Speech within normal limits. Mood "okay." Affect flat, disoriented, somewhat confused. No SI, no HI. No overt psychotic symptoms, poor insight and judgment. PROVISIONAL DIAGNOSES: History of dementia with behavioral disturbances. MEDICAL: Please see full H and P. ESTIMATED LENGTH OF STAY: 5-7 days. ASSESSMENT: The patient unstable at this time from psychiatric perspective, yelling, screaming, trying to get up, requiring a lot of redirection. PLAN: We will continue Yany and Tami, continue to orient the patient. TREATMENT PLAN: Includes group as well as milieu therapy. CONDITIONS FOR DISCHARGE: Improved mood, improved affect, cessation of any SI or HI, better control of her mood symptoms and behavioral disturbances. JOB# [id number]
[2017-08-27] MEDS: Vitamin D3 2,000 IU SGL PO SCH (09:34)
--- NOTE | 2017-08-27 12:38 | History & Physical ---
ADMIT DATE: 08/26/[address] James. IDENTIFYING INFORMATION: The patient is an 87-year-old female. CHIEF COMPLAINT: No answer. HISTORY OF PRESENT ILLNESS: The patient was transferred from medical floor. She is demented, confused, disoriented. She was unable to take care of herself, unable to care of her feeding, clothing and nursing home. PAST PSYCHIATRIC HISTORY: Not available, unable to give us information. MEDICAL HISTORY: ALLERGIES: SHE IS ALLERGIC TO ____ AND CLINDAMYCIN. MEDICATIONS: The patient has been started on Seroquel 25 mg twice a day. FAMILY AND SOCIAL HISTORY: Unobtainable. MENTAL STATUS EXAMINATION: The patient was in bed. She was unable to participate in a meaningful conversation. She opens her eyes and then closes. She is unpredictable, impulsive, unable to participate in memory testing, not answer any question, unable to make safe plan for self-care and her insight and judgment is impaired. IMPRESSION: AXIS I: Mood disorder, not otherwise specified, dementia. MEDICAL DIAGNOSES: Deferred to the medical doctor. Her assets, she is accepting treatment. Negative poor coping skills. INITIAL TREATMENT PLAN: The patient will be continued with Seroquel, do group therapy, milieu therapy, individual therapies. ESTIMATED LENGTH OF STAY: 3-7 days. DISCHARGE CRITERIA: Decreasing agitation, feeding better. After discharge, outpatient. [facility]# [id number]
--- NOTE | 2017-08-27 15:02 | Internal Medicine Prog Note ---
Internal Medicine Subjective - Subjective Patient seen and examined:: with staff, chart reviewed Patient is:: awake, verbal, interactive, agitated, confused Per staff patient has:: no adverse event, poor appetite, poor oral intake, agitated, noncompliant, refusing care Internal Medicine Objective - Physical Exam Vitals and I&O: Vital Signs Temp 96.9 F 08/27/17 07:15 Pulse 79 08/27/17 08:09 Resp 18 08/27/17 08:20 BP 99/60 08/27/17 09:34 Pulse Ox 97 08/27/17 08:09 Intake & Output 08/26/17 08/27/17 08/27/17 18:59 06:59 18:59 Intake Total 240 120 120 Balance 240 120 120 Weight (lbs) 54.749 kg Intake: Oral 240 120 120 Other: # Voids 1 2 Active Medications: Current Medications Acetaminophen (Tylenol) 650 mg PO Q4H PRN PRN Reason: Pain Or Fever above 101 Stop: 10/25/17 17:51 Al Hydrox/Mg Hydrox/Simethicone (Maalox) 30 ml PO Q6HR PRN PRN Reason: Dyspepsia Stop: 10/25/17 17:51 Albuterol Sulfate (Albuterol 2.5mg/3ml Neb Ud) 2.5 mg HHN Q2HRT CASSI Stop: 10/25/17 18:59 Allopurinol (Zyloprim) 100 mg PO DAILY [facility]SI Stop: 10/26/17 08:59 Last Admin: 08/27/17 09:35 Dose: Not Given Cyanocobalamin (Vitamin B12) 1,000 mcg PO DAILY CASSI Stop: 10/26/17 08:59 Last Admin: 08/27/17 09:34 Dose: Not Given Ipratropium [place] (Atrovent Neb 0.5mg/2.5ml) 0.5 mg HHN Q2HRT PRN PRN Reason: Shortness of Breath Stop: 10/25/17 17:56 Lorazepam (Ativan) 0.5 mg PO Q6HR PRN; Protocol PRN Reason: Anxiety Stop: 10/25/17 18:04 Losartan Potassium (Cozaar) 50 mg PO DAILY [facility]SI Stop: 10/26/17 08:59 Last Admin: 08/27/17 09:34 Dose: Not Given Memantine (Namenda) 10 mg PO BID [facility] Stop: 10/26/17 08:59 Last Admin: 08/27/17 09:46 Dose: Not Given Quetiapine Fumarate (Seroquel) 25 mg PO BID CASSI PRN Reason: Protocol Stop: 10/26/17 08:59 Last Admin: 08/27/17 09:46 Dose: Not Given Tramadol HCl (Ultram) 50 mg PO DAILY PRN PRN Reason: Pain (Moderate) Stop: 10/25/17 18:00 Vitamin D (Vitamin D3) 4,000 iu PO DAILY [facility] Stop: 10/26/17 08:59 Last Admin: 08/27/17 09:34 Dose: Not Given Zolpidem Tartrate (Ambien) 5 mg PO HS PRN PRN Reason: Insomnia Stop: 10/25/17 15:33 General: lethargic, demented HEENT: NC/AT, PERRLA, EOMI, thinning hair, poor dentition Neck: Supple, No JVD, No LAD Lungs: CTAB Cardiovascular: RRR, Normal S1, Normal S2, with murmur Abdomen: soft, thin, non-distended, positive bowel sound Extremities: excoriation, contracture Neurological: no change, lethargic, disorganized Internal Medicine Assmt/Plan - Assessment Assessment: Acute Back pain Generalized Weakness Failure to thrive HTN CAD Dyslipidemia Arthritis Dementia Hyponatremia Acute Kidney Injury - Plan Plan: cont w nutritional support cont w bp meds will adjust as needed cpm jean-paul cardenas
[2017-08-28] MEDS: Vitamin D3 2,000 IU SGL PO SCH (09:50)
--- NOTE | 2017-08-28 10:57 | Internal Medicine Prog Note ---
Internal Medicine Subjective - Subjective Patient seen and examined:: with staff, chart reviewed Patient is:: awake, verbal, interactive, agitated, confused Per staff patient has:: no adverse event, poor appetite, poor oral intake, agitated, noncompliant, refusing care Internal Medicine Objective - Physical Exam Vitals and I&O: Vital Signs Temp 98.6 F 08/28/17 06:39 Pulse 66 08/28/17 09:51 Resp 18 08/28/17 08:05 BP 139/66 08/28/17 09:51 Pulse Ox 93 08/28/17 08:05 Intake & Output 08/27/17 08/28/17 08/28/17 18:59 06:59 18:59 Intake Total 1320 120 Balance 1320 120 Intake: Oral 1320 120 Other: # Voids 3 3 # Bowel Movements 0 Stool Characteristics Soft Active Medications: Current Medications Acetaminophen (Tylenol) 650 mg PO Q4H PRN PRN Reason: Pain Or Fever above 101 Stop: 10/25/17 17:51 Al Hydrox/Mg Hydrox/Simethicone (Maalox) 30 ml PO Q6HR PRN PRN Reason: Dyspepsia Stop: 10/25/17 17:51 Albuterol Sulfate (Albuterol 2.5mg/3ml Neb Ud) 2.5 mg HHN Q2HRT CASSI Stop: 10/25/17 18:59 Allopurinol (Zyloprim) 100 mg PO DAILY [facility] Stop: 10/26/17 08:59 Last Admin: 08/28/17 09:51 Dose: 100 mg Cyanocobalamin (Vitamin B12) 1,000 mcg PO DAILY [facility] Stop: 10/26/17 08:59 Last Admin: 08/28/17 09:51 Dose: 1,000 mcg Ipratropium [place] (Atrovent Neb 0.5mg/2.5ml) 0.5 mg HHN Q2HRT PRN PRN Reason: Shortness of Breath Stop: 10/25/17 17:56 Lorazepam (Ativan) 0.5 mg PO Q6HR PRN; Protocol PRN Reason: Anxiety Stop: 10/25/17 18:04 Last Admin: 08/28/17 09:50 Dose: 0.5 mg Losartan Potassium (Cozaar) 50 mg PO DAILY [facility] Stop: 10/26/17 08:59 Last Admin: 08/28/17 09:51 Dose: 50 mg Memantine (Namenda) 10 mg PO BID [facility]SI Stop: 10/26/17 08:59 Last Admin: 08/28/17 09:51 Dose: 10 mg Quetiapine Fumarate (Seroquel) 25 mg PO BID CASSI PRN Reason: Protocol Stop: 10/26/17 08:59 Last Admin: 08/28/17 09:50 Dose: 25 mg Tramadol HCl (Ultram) 50 mg PO DAILY PRN PRN Reason: Pain (Moderate) Stop: 10/25/17 18:00 Vitamin D (Vitamin D3) 4,000 iu PO DAILY CASSI Stop: 10/26/17 08:59 Last Admin: 08/28/17 09:50 Dose: 4,000 iu Zolpidem Tartrate (Ambien) 5 mg PO HS PRN PRN Reason: Insomnia Stop: 10/25/17 15:33 General: lethargic, demented HEENT: NC/AT, PERRLA, EOMI, thinning hair, poor dentition Neck: Supple, No JVD, No LAD Lungs: CTAB Cardiovascular: RRR, Normal S1, Normal S2, with murmur Abdomen: soft, thin, non-distended, positive bowel sound Extremities: excoriation, contracture Neurological: no change, lethargic, disorganized Internal Medicine Assmt/Plan - Assessment Assessment: Acute Back pain Generalized Weakness Failure to thrive HTN CAD Dyslipidemia Arthritis Dementia Hyponatremia Acute Kidney Injury - Plan Plan: cont w nutritional support cont w bp meds will adjust as needed cpm jean-paul cardenas
--- NOTE | 2017-08-29 02:14 | Progress Notes ---
DATE: 08/28/2017 Case was discussed with staff of the patient, reviewed records. The patient continues to be in bed, appear to be very weak, unable to participate in meaningful conversation or make safe plan for self-care. Continues to be unpredictable, impulsive, needing redirection. Continues to have poor insight. No side effects to the medication, no sedation, no nausea, no extrapyramidal symptoms. We will continue to work with the patient in group therapy, milieu therapy, and adjust medications as needed. JOB# [id number]
--- NOTE | 2017-08-29 12:25 | Internal Medicine Prog Note ---
Internal Medicine Subjective - Subjective Service Date: 08/29/17 Patient is:: awake, verbal, interactive, agitated, confused Per staff patient has:: no adverse event, poor appetite, poor oral intake, agitated, noncompliant, refusing care Internal Medicine Objective - Physical Exam Vitals and I&O: Vital Signs Temp 97.3 F 08/29/17 05:58 Pulse 68 08/29/17 07:32 Resp 18 08/29/17 07:32 BP 146/68 08/29/17 05:58 Pulse Ox 95 08/29/17 07:32 Intake & Output 08/28/17 08/29/17 08/29/17 18:59 06:59 18:59 Intake Total 600 240 Balance 600 240 Intake: Oral 600 240 Other: # Voids 3 3 # Bowel Movements 0 0 Active Medications: Current Medications Acetaminophen (Tylenol) 650 mg PO Q4H PRN PRN Reason: Pain Or Fever above 101 Stop: 10/25/17 17:51 Al Hydrox/Mg Hydrox/Simethicone (Maalox) 30 ml PO Q6HR PRN PRN Reason: Dyspepsia Stop: 10/25/17 17:51 Albuterol Sulfate (Albuterol 2.5mg/3ml Neb Ud) 2.5 mg HHN Q2HRT [facility] Stop: 10/25/17 18:59 Allopurinol (Zyloprim) 100 mg PO DAILY [facility] Stop: 10/26/17 08:59 Last Admin: 08/28/17 09:51 Dose: 100 mg Cyanocobalamin (Vitamin B12) 1,000 mcg PO DAILY [facility] Stop: 10/26/17 08:59 Last Admin: 08/28/17 09:51 Dose: 1,000 mcg Ipratropium [place] (Atrovent Neb 0.5mg/2.5ml) 0.5 mg HHN Q2HRT PRN PRN Reason: Shortness of Breath Stop: 10/25/17 17:56 Lorazepam (Ativan) 0.5 mg PO Q6HR PRN; Protocol PRN Reason: Anxiety Stop: 10/25/17 18:04 Last Admin: 08/28/17 17:24 Dose: 0.5 mg Losartan Potassium (Cozaar) 50 mg PO DAILY [facility] Stop: 10/26/17 08:59 Last Admin: 10/08/17 09:51 Dose: 50 mg Memantine (Namenda) 10 mg PO BID [facility] Stop: 10/26/17 08:59 Last Admin: 08/28/17 17:24 Dose: 10 mg Quetiapine Fumarate (Seroquel) 25 mg PO BID [facility] PRN Reason: Protocol Stop: 10/26/17 08:59 Last Admin: 08/28/17 17:24 Dose: 25 mg Tramadol HCl (Ultram) 50 mg PO DAILY PRN PRN Reason: Pain (Moderate) Stop: 10/25/17 18:00 Last Admin: 08/28/17 11:13 Dose: 50 mg Vitamin D (Vitamin D3) 4,000 iu PO DAILY [facility] Stop: 10/26/17 08:59 Last Admin: 08/28/17 09:50 Dose: 4,000 iu Zolpidem Tartrate (Ambien) 5 mg PO HS PRN PRN Reason: Insomnia Stop: 10/25/17 15:33 Last Admin: 08/28/17 21:34 Dose: 5 mg General: lethargic, demented HEENT: NC/AT, PERRLA, EOMI, thinning hair, poor dentition Neck: Supple, No JVD, No LAD Lungs: CTAB Cardiovascular: RRR, Normal S1, Normal S2, with murmur Abdomen: soft, thin, non-distended, positive bowel sound Extremities: excoriation, contracture Neurological: no change, lethargic, disorganized Internal Medicine Assmt/Plan - Assessment Assessment: Acute Back pain Generalized Weakness Failure to thrive HTN CAD Dyslipidemia Arthritis Dementia Hyponatremia Acute Kidney Injury - Plan Plan: pain mgmt monitor bp continue current plan of care
[2017-08-29] MEDS: Vitamin D3 2,000 IU SGL PO SCH (17:48)
--- NOTE | 2017-08-29 22:20 | Progress Notes ---
DATE: 08/29/2017 SUBJECTIVE: Chart reviewed and the patient interviewed. Also discussed the patient's condition with the staff and reviewed records and labs. The patient is still agitated and she is still actively hallucinating and she is still psychotic. The patient also still needs lots of redirections and she is still confused and forgetful. The patient also is still resisting care and fighting with the staff during helping her with her ADLs. Otherwise, the patient continued to take Namenda and Seroquel with no side effects. ASSESSMENT: The patient is still confused and psychotic and can be dangerous to others. TREATMENT PLAN: We will continue monitoring her behavior and her condition closely. Also, continue adjusting psychotropic medications and working on behavioral modification. [facility]# [id number]
--- NOTE | 2017-08-30 14:12 | Internal Medicine Prog Note ---
Internal Medicine Subjective - Subjective Service Date: 08/30/17 (patient is more sleepy today, patient is able to open eyes, but does not want to interact. ) Patient is:: awake, interactive Per staff patient has:: no adverse event, poor appetite, poor oral intake, noncompliant, refusing care Internal Medicine Objective - Physical Exam Vitals and I&O: Vital Signs Temp 97.9 F 08/30/17 06:09 Pulse 67 08/30/17 08:00 Resp 18 08/30/17 08:00 BP 123/51 08/30/17 06:09 Pulse Ox 94 08/30/17 08:00 Intake & Output 08/29/17 08/30/17 08/30/17 18:59 06:59 18:59 Intake Total 900 180 Balance 900 180 Intake: Oral 900 180 Other: # Voids 4 1 # Bowel Movements 0 0 Active Medications: Current Medications Acetaminophen (Tylenol) 650 mg PO Q4H PRN PRN Reason: Pain Or Fever above 101 Stop: 10/25/17 17:51 Al Hydrox/Mg Hydrox/Simethicone (Maalox) 30 ml PO Q6HR PRN PRN Reason: Dyspepsia Stop: 10/25/17 17:51 Albuterol Sulfate (Albuterol 2.5mg/3ml Neb Ud) 2.5 mg HHN Q2HRT [facility] Stop: 10/25/17 18:59 Allopurinol (Zyloprim) 100 mg PO DAILY [facility] Stop: 10/26/17 08:59 Last Admin: 08/29/17 17:48 Dose: Not Given Cyanocobalamin (Vitamin B12) 1,000 mcg PO DAILY [facility] Stop: 10/26/17 08:59 Last Admin: 08/29/17 17:48 Dose: Not Given Ipratropium [place] (Atrovent Neb 0.5mg/2.5ml) 0.5 mg HHN Q2HRT PRN PRN Reason: Shortness of Breath Stop: 10/25/17 17:56 Lorazepam (Ativan) 0.5 mg PO Q6HR PRN; Protocol PRN Reason: Anxiety Stop: 10/25/17 18:04 Last Admin: 08/28/17 17:24 Dose: 0.5 mg Losartan Potassium (Cozaar) 50 mg PO DAILY [facility] Stop: 10/26/17 08:59 Last Admin: 08/29/17 17:48 Dose: Not Given Memantine (Namenda) 10 mg PO BID [facility] Stop: 10/26/17 08:59 Last Admin: 08/30/17 09:47 Dose: 10 mg Quetiapine Fumarate (Seroquel) 25 mg PO BID [facility] PRN Reason: Protocol Stop: 10/26/17 08:59 Last Admin: 08/30/17 09:47 Dose: 25 mg Tramadol HCl (Ultram) 50 mg PO DAILY PRN PRN Reason: Pain (Moderate) Stop: 10/25/17 18:00 Last Admin: 08/28/17 11:13 Dose: 50 mg Vitamin D (Vitamin D3) 4,000 iu PO DAILY [facility] Stop: 10/26/17 08:59 Last Admin: 08/29/17 17:48 Dose: Not Given Zolpidem Tartrate (Ambien) 5 mg PO HS PRN PRN Reason: Insomnia Stop: 10/25/17 15:33 Last Admin: 08/29/17 22:30 Dose: 5 mg General: weak, lethargic, demented HEENT: NC/AT, PERRLA, EOMI, thinning hair, poor dentition Neck: Supple, No JVD, No LAD Lungs: CTAB Cardiovascular: RRR, Normal S1, Normal S2, with murmur Abdomen: soft, thin, non-distended, positive bowel sound Extremities: excoriation, contracture Neurological: no change, lethargic, disorganized Internal Medicine Assmt/Plan - Assessment Assessment: Acute Back pain Generalized Weakness Failure to thrive HTN CAD Dyslipidemia Arthritis Dementia Hyponatremia Acute Kidney Injury - Plan Plan: will check ammonia levels, cmp today pain mgmt monitor bp continue current plan of care
[2017-08-30 15:00] LABS: % BASOPHILS 0.9 % (0.0-2.0); % EOSINOPHILS 1.6 % (0.0-5.0); % LYMPHOCYTES 13.4 % (20.0-50.0); % MONOCYTES 10.1 % (2.0-10.0); HEMATOCRIT 30.5 % (41.0-60); HEMOGLOBIN 10.4 gm/dL (12-16); MEAN CELL VOLUME 90.3 fl (81-100); MEAN CORPUSCULAR HEMOGLOBIN 30.8 pg (27.0-31.0); MEAN CORPUSCULAR HGB CONC 34.1 pg (28.0-36.0); MEAN PLATELET VOLUME 8.5 fl; NEUTROPHILE ABSOLUTE 7.5 Th/cmm (1.8-8.0); RED BLOOD COUNT 3.38 Mil/cmm (3.80-5.20); RED CELL DISTRIBUTION WIDTH 16.3 % (11.5-20.0); WHITE BLOOD COUNT 10.2 Th/cmm (4.8-10.8)
[2017-08-30 15:08] LABS: PLATELET COUNT 303 Th/cmm (150-400)
[2017-08-30 15:14] LABS: ALB/GLOB RATIO 1.2 (1.0-1.8); ALKALINE PHOSPHATASE 68 U/L (34-104); ANION GAP 9.6 (7.0-16.0); BUN - UREA NITROGEN 50 mg/dL (7-25); BUN/CREATININE RATIO 55.6; CALCIUM SERUM 9.5 mg/dL (8.6-10.3); CARBON DIOXIDE 23.7 mEq/L (21.0-31.0); CHLORIDE 104 mEq/L (98-107); CREATININE - SERUM 0.9 mg/dL (0.6-1.2); GLUCOSE 105 mg/dL (70-105); POTASSIUM SERUM 4.3 mEq/L (3.5-5.1); SGOT 20 U/L (13-39); SGPT/ALT 9 U/L (7-52); SODIUM SERUM 133 mEq/L (136-145)
[2017-08-30] MEDS: Vitamin D3 2,000 IU SGL PO SCH (16:04)
--- NOTE | 2017-08-30 20:06 | Progress Notes ---
DATE: 08/30/2017 SUBJECTIVE: Chart reviewed and the patient interviewed. Also, discussed the patient's condition with the staff and reviewed records and labs. The patient is still unpredictable and is still agitated. The patient also is still confused and still needs lots of redirections. She also is suspicious and is still paranoid. The patient also has severe mood swings. She also needs lots of redirections. Otherwise, the patient is compliant with taking her medications with no side effects of medications. ASSESSMENT: The patient still can be dangerous to others and is still psychotic. TREATMENT PLAN: Continue to monitor her behavior and her medications and continue to work on her unpredictable behavior and agitation. JOB# [id number]
--- NOTE | 2017-08-31 08:31 | Progress Notes ---
DATE: 08/31/2017 SUBJECTIVE: Chart reviewed and the patient interviewed. Also, discussed the patient's condition with the staff and reviewed records and labs. The patient is still easily agitated and she still has episodes of yelling and screaming for no reason. She also is still forgetful and she still needs lots of redirections. Also, personal hygiene is still poor. The patient is unable to carry on any coherent conversation. She also still wants to be left alone and she has difficulty making up her mind or making decisions because of confusion and her forgetfulness. ASSESSMENT: The patient is still psychotic and is still agitated. TREATMENT PLAN: Continue Seroquel at a dose of 25 mg twice a day. Also, continue to work on her irritability and agitation as well as behavioral modification. Also, working on adjusting psychotropic medications as on any possibility of placement issue or discharge plans. JOB# [id number]
[2017-08-31] MEDS: Vitamin D3 2,000 IU SGL PO SCH (09:47)
--- NOTE | 2017-08-31 15:52 | Internal Medicine Prog Note ---
Internal Medicine Subjective - Subjective Service Date: 08/31/17 Patient is:: awake, interactive Per staff patient has:: no adverse event, poor appetite, poor oral intake, noncompliant, refusing care Internal Medicine Objective - Results Result Diagrams: 08/30/17 14:38 08/30/17 14:38 Recent Labs: Laboratory Last Values WBC 10.2 Th/cmm (4.8-10.8) 08/30/17 14:38 RBC 3.38 Mil/cmm (3.80-5.20) L 08/30/17 14:38 Hgb 10.4 gm/dL (12-16) L 08/30/17 14:38 Hct 30.5 % (41.0-60) L 08/30/17 14:38 MCV 90.3 fl (81-100) 08/30/17 14:38 MCH 30.8 pg (27.0-31.0) 08/30/17 14:38 MCHC Differential 34.1 pg (28.0-36.0) 08/30/17 14:38 RDW 16.3 % (11.5-20.0) 08/30/17 14:38 Plt Count 303 Th/cmm (150-400) D 08/30/17 14:38 MPV 8.5 fl 08/30/17 14:38 Neutrophils % 74.0 % (40.0-80.0) 08/30/17 14:38 Lymphocytes % 13.4 % (20.0-50.0) L 08/30/17 14:38 Monocytes % 10.1 % (2.0-10.0) H 08/30/17 14:38 Eosinophils % 1.6 % (0.0-5.0) 08/30/17 14:38 Basophils % 0.9 % (0.0-2.0) 08/30/17 14:38 Sodium 133 mEq/L (136-145) L 08/30/17 14:38 Potassium 4.3 mEq/L (3.5-5.1) 08/30/17 14:38 Chloride 104 mEq/L (98-107) 08/30/17 14:38 Carbon Dioxide 23.7 mEq/L (21.0-31.0) 08/30/17 14:38 Anion Gap 9.6 (7.0-16.0) 08/30/17 14:38 BUN 50 mg/dL (7-25) H 08/30/17 14:38 Creatinine 0.9 mg/dL (0.6-1.2) 08/30/17 14:38 Est GFR ( Amer) TNP 08/30/17 14:38 Est GFR (Non-Af Amer) TNP 08/30/17 14:38 BUN/Creatinine Ratio 55.6 08/30/17 14:38 Glucose 105 mg/dL (70-105) 08/30/17 14:38 Calcium 9.5 mg/dL (8.6-10.3) 08/30/17 14:38 Total Bilirubin 1.0 mg/dL (0.3-1.0) 08/30/17 14:38 AST 20 U/L (13-39) 08/30/17 14:38 ALT 9 U/L (7-52) 08/30/17 14:38 Alkaline Phosphatase 68 U/L (34-104) 08/30/17 14:38 Ammonia 29 umol/L (16-53) 08/30/17 14:38 Total Protein 6.5 gm/dL (6.0-8.3) 08/30/17 14:38 Albumin 3.6 gm/dL (3.7-5.3) L 08/30/17 14:38 Globulin 2.9 gm/dL 08/30/17 14:38 Albumin/Globulin Ratio 1.2 (1.0-1.8) 08/30/17 14:38 - Physical Exam Vitals and I&O: Vital Signs Temp 98.2 F 08/31/17 14:00 Pulse 91 08/31/17 14:00 Resp 19 08/31/17 14:00 BP 116/49 08/31/17 14:00 Pulse Ox 98 08/31/17 14:00 Intake & Output 08/30/17 08/31/17 08/31/17 18:59 06:59 18:59 Intake Total 1320 Balance 1320 Intake: Oral 1320 Other: # Voids 3 # Bowel Movements 0 Active Medications: Current Medications Acetaminophen (Tylenol) 650 mg PO Q4H PRN PRN Reason: Pain Or Fever above 101 Stop: 10/25/17 17:51 Al Hydrox/Mg Hydrox/Simethicone (Maalox) 30 ml PO Q6HR PRN PRN Reason: Dyspepsia Stop: 10/25/17 17:51 Albuterol Sulfate (Albuterol 2.5mg/3ml Neb Ud) 2.5 mg HHN Q2HRT [facility] Stop: 10/25/17 18:59 Allopurinol (Zyloprim) 100 mg PO DAILY [facility] Stop: 10/26/17 08:59 Last Admin: 08/31/17 09:45 Dose: 100 mg Cyanocobalamin (Vitamin B12) 1,000 mcg PO DAILY [facility] Stop: 10/26/17 08:59 Last Admin: 08/31/17 09:46 Dose: 1,000 mcg Ipratropium [place] (Atrovent Neb 0.5mg/2.5ml) 0.5 mg HHN Q2HRT PRN PRN Reason: Shortness of Breath Stop: 10/25/17 17:56 Lorazepam (Ativan) 0.5 mg PO Q6HR PRN; Protocol PRN Reason: Anxiety Stop: 10/25/17 18:04 Last Admin: 08/28/17 17:24 Dose: 0.5 mg Losartan Potassium (Cozaar) 50 mg PO DAILY [facility] Stop: 10/26/17 08:59 Last Admin: 08/31/17 09:46 Dose: 50 mg Memantine (Namenda) 10 mg PO BID [facility] Stop: 10/26/17 08:59 Last Admin: 08/31/17 09:46 Dose: 10 mg Quetiapine Fumarate (Seroquel) 25 mg PO BID [facility] PRN Reason: Protocol Stop: 10/26/17 08:59 Last Admin: 08/31/17 09:46 Dose: 25 mg Tramadol HCl (Ultram) 50 mg PO DAILY PRN PRN Reason: Pain (Moderate) Stop: 10/25/17 18:00 Last Admin: 08/28/17 11:13 Dose: 50 mg Vitamin D (Vitamin D3) 4,000 iu PO DAILY [facility] Stop: 10/26/17 08:59 Last Admin: 08/31/17 09:47 Dose: 4,000 iu Zolpidem Tartrate (Ambien) 5 mg PO HS PRN PRN Reason: Insomnia Stop: 10/25/17 15:33 Last Admin: 08/29/17 22:30 Dose: 5 mg General: weak, lethargic, demented HEENT: NC/AT, PERRLA, EOMI, thinning hair, poor dentition Neck: Supple, No JVD, No LAD Lungs: CTAB Cardiovascular: RRR, Normal S1, Normal S2, with murmur Abdomen: soft, thin, non-distended, positive bowel sound Extremities: excoriation, contracture Neurological: no change, lethargic, disorganized Internal Medicine Assmt/Plan - Assessment Assessment: Acute Back pain Generalized Weakness Failure to thrive HTN CAD Dyslipidemia Arthritis Dementia Hyponatremia Acute Kidney Injury - Plan Plan: pain mgmt monitor bp continue current plan of care
[2017-08-31] MEDS ORDERED: Albuterol Nebulizer 2.5mg/3mL HHN PRN (17:31)
--- NOTE | 2017-09-01 07:35 | Progress Notes ---
DATE: 09/01/2017 SUBJECTIVE: Chart reviewed and the patient interviewed. Also discussed the patient's condition with the staff and reviewed records and labs. The patient is still confused and she still needs lots of redirections. The patient also is still unable to answer any of my questions coherently. She is also staying in her bed most of the time. The patient is in angry and in irritable mood with severe mood swings. She also is selectively mute. Otherwise, the patient continued to comply with taking her medications and the patient continued to take Seroquel and Namenda with no side effects. ASSESSMENT: The patient is still considered to be gravely disabled. TREATMENT PLAN: We will continue monitoring her behavior and her condition closely. Also, continue adjusting psychotropic medications and working on behavioral modification. Also, working on discharge plans and placement issue. JOB# [id number]
[2017-09-01] MEDS: Vitamin D3 2,000 IU SGL PO SCH (10:25)
--- NOTE | 2017-09-01 11:38 | Internal Medicine Prog Note ---
Internal Medicine Subjective - Subjective Service Date: 09/01/17 Patient is:: awake, interactive Per staff patient has:: no adverse event, poor appetite, poor oral intake, noncompliant, refusing care Internal Medicine Objective - Results Result Diagrams: 08/30/17 14:38 08/30/17 14:38 Recent Labs: Laboratory Last Values WBC 10.2 Th/cmm (4.8-10.8) 08/30/17 14:38 RBC 3.38 Mil/cmm (3.80-5.20) L 08/30/17 14:38 Hgb 10.4 gm/dL (12-16) L 08/30/17 14:38 Hct 30.5 % (41.0-60) L 08/30/17 14:38 MCV 90.3 fl (81-100) 08/30/17 14:38 MCH 30.8 pg (27.0-31.0) 08/30/17 14:38 MCHC Differential 34.1 pg (28.0-36.0) 08/30/17 14:38 RDW 16.3 % (11.5-20.0) 08/30/17 14:38 Plt Count 303 Th/cmm (150-400) D 08/30/17 14:38 MPV 8.5 fl 08/30/17 14:38 Neutrophils % 74.0 % (40.0-80.0) 08/30/17 14:38 Lymphocytes % 13.4 % (20.0-50.0) L 08/30/17 14:38 Monocytes % 10.1 % (2.0-10.0) H 08/30/17 14:38 Eosinophils % 1.6 % (0.0-5.0) 08/30/17 14:38 Basophils % 0.9 % (0.0-2.0) 08/30/17 14:38 Sodium 133 mEq/L (136-145) L 08/30/17 14:38 Potassium 4.3 mEq/L (3.5-5.1) 08/30/17 14:38 Chloride 104 mEq/L (98-107) 08/30/17 14:38 Carbon Dioxide 23.7 mEq/L (21.0-31.0) 08/30/17 14:38 Anion Gap 9.6 (7.0-16.0) 08/30/17 14:38 BUN 50 mg/dL (7-25) H 08/30/17 14:38 Creatinine 0.9 mg/dL (0.6-1.2) 08/30/17 14:38 Est GFR ( Amer) TNP 08/30/17 14:38 Est GFR (Non-Af Amer) TNP 08/30/17 14:38 BUN/Creatinine Ratio 55.6 08/30/17 14:38 Glucose 105 mg/dL (70-105) 08/30/17 14:38 Calcium 9.5 mg/dL (8.6-10.3) 08/30/17 14:38 Total Bilirubin 1.0 mg/dL (0.3-1.0) 08/30/17 14:38 AST 20 U/L (13-39) 08/30/17 14:38 ALT 9 U/L (7-52) 08/30/17 14:38 Alkaline Phosphatase 68 U/L (34-104) 08/30/17 14:38 Ammonia 29 umol/L (16-53) 08/30/17 14:38 Total Protein 6.5 gm/dL (6.0-8.3) 08/30/17 14:38 Albumin 3.6 gm/dL (3.7-5.3) L 08/30/17 14:38 Globulin 2.9 gm/dL 08/30/17 14:38 Albumin/Globulin Ratio 1.2 (1.0-1.8) 08/30/17 14:38 - Physical Exam Vitals and I&O: Vital Signs Temp 96.9 F 09/01/17 06:16 Pulse 107 09/01/17 10:26 Resp 19 09/01/17 06:16 BP 149/72 09/01/17 10:26 Pulse Ox 96 09/01/17 06:16 Intake & Output 08/31/17 09/01/17 09/01/17 18:59 06:59 18:59 Intake Total 1200 120 Balance 1200 120 Intake: Oral 1200 120 Other: # Voids 3 # Bowel Movements 1 Active Medications: Current Medications Acetaminophen (Tylenol) 650 mg PO Q4H PRN PRN Reason: Pain Or Fever above 101 Stop: 10/25/17 17:51 Last Admin: 08/31/17 15:07 Dose: 650 mg Al Hydrox/Mg Hydrox/Simethicone (Maalox) 30 ml PO Q6HR PRN PRN Reason: Dyspepsia Stop: 10/25/17 17:51 Albuterol Sulfate (Albuterol 2.5mg/3ml Neb Ud) 2.5 mg HHN Q2HRT PRN PRN Reason: Shortness of Breath Stop: 10/25/17 18:59 Allopurinol (Zyloprim) 100 mg PO DAILY [facility] Stop: 10/26/17 08:59 Last Admin: 09/01/17 10:26 Dose: 100 mg Cyanocobalamin (Vitamin B12) 1,000 mcg PO DAILY [facility] Stop: 10/26/17 08:59 Last Admin: 09/01/17 10:26 Dose: 1,000 mcg Ipratropium [place] (Atrovent Neb 0.5mg/2.5ml) 0.5 mg HHN Q2HRT PRN PRN Reason: Shortness of Breath Stop: 10/25/17 17:56 Lorazepam (Ativan) 0.5 mg PO Q6HR PRN; Protocol PRN Reason: Anxiety Stop: 10/25/17 18:04 Last Admin: 08/28/17 17:24 Dose: 0.5 mg Losartan Potassium (Cozaar) 50 mg PO DAILY [facility] Stop: 10/26/17 08:59 Last Admin: 09/01/17 10:26 Dose: 50 mg Memantine (Namenda) 10 mg PO BID [facility] Stop: 10/26/17 08:59 Last Admin: 09/01/17 10:26 Dose: 10 mg Quetiapine Fumarate (Seroquel) 25 mg PO BID [facility] PRN Reason: Protocol Stop: 10/26/17 08:59 Last Admin: 09/01/17 10:26 Dose: 25 mg Tramadol HCl (Ultram) 50 mg PO DAILY PRN PRN Reason: Pain (Moderate) Stop: 10/25/17 18:00 Last Admin: 09/01/17 07:56 Dose: 50 mg Vitamin D (Vitamin D3) 4,000 iu PO DAILY [facility] Stop: 10/26/17 08:59 Last Admin: 09/01/17 10:25 Dose: 4,000 iu Zolpidem Tartrate (Ambien) 5 mg PO HS PRN PRN Reason: Insomnia Stop: 10/25/17 15:33 Last Admin: 08/29/17 22:30 Dose: 5 mg General: weak, lethargic, demented HEENT: NC/AT, PERRLA, EOMI, thinning hair, poor dentition Neck: Supple, No JVD, No LAD Lungs: CTAB Cardiovascular: RRR, Normal S1, Normal S2, with murmur Abdomen: soft, thin, non-distended, positive bowel sound Extremities: excoriation, contracture Neurological: no change, lethargic, disorganized Internal Medicine Assmt/Plan - Assessment Assessment: Acute Back pain Generalized Weakness Failure to thrive HTN CAD Dyslipidemia Arthritis Dementia Hyponatremia Acute Kidney Injury - Plan Plan: pain mgmt monitor bp continue current plan of care
--- NOTE | 2017-09-02 07:17 | Progress Notes ---
DATE: 09/02/2017 SUBJECTIVE: Chart reviewed and the patient interviewed. Also, discussed the patient's condition with the staff and reviewed records and labs. The patient continued to be confused and disoriented and rambling and unable to carry on coherent conversation. The patient also still had episodes of yelling and screaming and restlessness. She wants to be left alone at times, but other times, she is in angry and in irritable mood and easily agitated and needs lots of redirections. ASSESSMENT: The patient is still psychotic and is still considered to be gravely disabled. TREATMENT PLAN: We will continue Seroquel and Namenda. Also, continue to work on behavioral modification and on her confusion and continue to follow up. JOB# [id number]
[2017-09-02] MEDS: Vitamin D3 2,000 IU SGL PO SCH (08:32)
--- NOTE | 2017-09-02 12:51 | Internal Medicine Prog Note ---
Internal Medicine Subjective - Subjective Service Date: 09/02/17 Patient is:: awake, interactive Per staff patient has:: no adverse event, poor appetite, poor oral intake, noncompliant, refusing care Internal Medicine Objective - Results Result Diagrams: 08/30/17 14:38 08/30/17 14:38 Recent Labs: Laboratory Last Values WBC 10.2 Th/cmm (4.8-10.8) 08/30/17 14:38 RBC 3.38 Mil/cmm (3.80-5.20) L 08/30/17 14:38 Hgb 10.4 gm/dL (12-16) L 08/30/17 14:38 Hct 30.5 % (41.0-60) L 08/30/17 14:38 MCV 90.3 fl (81-100) 08/30/17 14:38 MCH 30.8 pg (27.0-31.0) 08/30/17 14:38 MCHC Differential 34.1 pg (28.0-36.0) 08/30/17 14:38 RDW 16.3 % (11.5-20.0) 08/30/17 14:38 Plt Count 303 Th/cmm (150-400) D 08/30/17 14:38 MPV 8.5 fl 08/30/17 14:38 Neutrophils % 74.0 % (40.0-80.0) 08/30/17 14:38 Lymphocytes % 13.4 % (20.0-50.0) L 08/30/17 14:38 Monocytes % 10.1 % (2.0-10.0) H 08/30/17 14:38 Eosinophils % 1.6 % (0.0-5.0) 08/30/17 14:38 Basophils % 0.9 % (0.0-2.0) 08/30/17 14:38 Sodium 133 mEq/L (136-145) L 08/30/17 14:38 Potassium 4.3 mEq/L (3.5-5.1) 08/30/17 14:38 Chloride 104 mEq/L (98-107) 08/30/17 14:38 Carbon Dioxide 23.7 mEq/L (21.0-31.0) 08/30/17 14:38 Anion Gap 9.6 (7.0-16.0) 08/30/17 14:38 BUN 50 mg/dL (7-25) H 08/30/17 14:38 Creatinine 0.9 mg/dL (0.6-1.2) 08/30/17 14:38 Est GFR ( Amer) TNP 08/30/17 14:38 Est GFR (Non-Af Amer) TNP 08/30/17 14:38 BUN/Creatinine Ratio 55.6 08/30/17 14:38 Glucose 105 mg/dL (70-105) 08/30/17 14:38 Calcium 9.5 mg/dL (8.6-10.3) 08/30/17 14:38 Total Bilirubin 1.0 mg/dL (0.3-1.0) 08/30/17 14:38 AST 20 U/L (13-39) 08/30/17 14:38 ALT 9 U/L (7-52) 08/30/17 14:38 Alkaline Phosphatase 68 U/L (34-104) 08/30/17 14:38 Ammonia 29 umol/L (16-53) 08/30/17 14:38 Total Protein 6.5 gm/dL (6.0-8.3) 08/30/17 14:38 Albumin 3.6 gm/dL (3.7-5.3) L 08/30/17 14:38 Globulin 2.9 gm/dL 08/30/17 14:38 Albumin/Globulin Ratio 1.2 (1.0-1.8) 08/30/17 14:38 - Physical Exam Vitals and I&O: Vital Signs Temp 97.9 F 09/02/17 06:34 Pulse 83 09/02/17 08:33 Resp 18 09/02/17 07:44 BP 127/64 09/02/17 08:33 Pulse Ox 92 09/02/17 07:44 Intake & Output 09/01/17 09/02/17 09/02/17 18:59 06:59 18:59 Intake Total 960 120 Balance 960 120 Weight (lbs) 117 lb 11.2 oz Intake: Oral 960 120 Other: # Voids 4 3 # Bowel Movements 0 Active Medications: Current Medications Acetaminophen (Tylenol) 650 mg PO Q4H PRN PRN Reason: Pain Or Fever above 101 Stop: 10/25/17 17:51 Last Admin: 08/31/17 15:07 Dose: 650 mg Al Hydrox/Mg Hydrox/Simethicone (Maalox) 30 ml PO Q6HR PRN PRN Reason: Dyspepsia Stop: 10/25/17 17:51 Albuterol Sulfate (Albuterol 2.5mg/3ml Neb Ud) 2.5 mg HHN Q2HRT PRN PRN Reason: Shortness of Breath Stop: 10/25/17 18:59 Allopurinol (Zyloprim) 100 mg PO DAILY [facility] Stop: 10/26/17 08:59 Last Admin: 09/02/17 08:32 Dose: 100 mg Cyanocobalamin (Vitamin B12) 1,000 mcg PO DAILY [facility] Stop: 10/26/17 08:59 Last Admin: 09/02/17 08:34 Dose: 1,000 mcg Ipratropium [place] (Atrovent Neb 0.5mg/2.5ml) 0.5 mg HHN Q2HRT PRN PRN Reason: Shortness of Breath Stop: 10/25/17 17:56 Lorazepam (Ativan) 0.5 mg PO Q6HR PRN; Protocol PRN Reason: Anxiety Stop: 10/25/17 18:04 Last Admin: 08/28/17 17:24 Dose: 0.5 mg Losartan Potassium (Cozaar) 50 mg PO DAILY [facility] Stop: 10/26/17 08:59 Last Admin: 09/02/17 08:33 Dose: 50 mg Memantine (Namenda) 10 mg PO BID [facility] Stop: 10/26/17 08:59 Last Admin: 09/02/17 08:34 Dose: 10 mg Quetiapine Fumarate (Seroquel) 25 mg PO BID [facility] PRN Reason: Protocol Stop: 10/26/17 08:59 Last Admin: 09/02/17 08:32 Dose: 25 mg Tramadol HCl (Ultram) 50 mg PO DAILY PRN PRN Reason: Pain (Moderate) Stop: 10/25/17 18:00 Last Admin: 09/02/17 08:38 Dose: 50 mg Vitamin D (Vitamin D3) 4,000 iu PO DAILY [facility] Stop: 10/26/17 08:59 Last Admin: 09/02/17 08:32 Dose: 4,000 iu Zolpidem Tartrate (Ambien) 5 mg PO HS PRN PRN Reason: Insomnia Stop: 10/25/17 15:33 Last Admin: 08/29/17 22:30 Dose: 5 mg General: weak, lethargic, demented HEENT: NC/AT, PERRLA, EOMI, thinning hair, poor dentition Neck: Supple, No JVD, No LAD Lungs: CTAB Cardiovascular: RRR, Normal S1, Normal S2, with murmur Abdomen: soft, thin, non-distended, positive bowel sound Extremities: excoriation, contracture Neurological: no change, lethargic, disorganized Internal Medicine Assmt/Plan - Assessment Assessment: Acute Back pain Generalized Weakness Failure to thrive HTN CAD Dyslipidemia Arthritis Dementia Hyponatremia Acute Kidney Injury - Plan Plan: pain mgmt monitor bp continue current plan of care Nutritional Asmnt/Malnutr-PDOC - Dietary Evaluation Malnutrition Findings (Please click <Entered> for more info): Nutritional Asmnt/Malnutrition Start: 09/01/17 17: 10 Text: Status: Complete Freq: Document 09/01/17 17:10 GSUN (Rec: 09/01/17 17:49 [id number]) Nutritional Asmnt/Malnutrition Patient General Information Nutritional Screening Moderate Risk Screening Diagnosis Mood disorder, NOS, dementia Pertinent Medical Hx/Surgical Hx HTN, CAD, dyslipidemia, arthritis, dementia, appendectomy, hysterectomy Subjective Information 87 year old female. Visited pt during meal time. Pt seen eating in room, able to self feed, son and at bedside. Pt was pleasant, denied nutritinoal concerns at this time. Avg PO intake 55% of past 15 meals, meeting 89% lower end kcal and 100% protein needs. Pt report UBW 120lb. Discussed near underweight status and benefits of increasing PO intake for elders, pt nodded. Pt stated regarding food "so far I like it." Pt appeared lean overall, age considered, mild wasting to chest and clavicles, hanging loose skin to arms. Teeth intact, no difficulties. Current Diet Order/ Nutrition Support Low sodium 2gm Pertinent Medications Vitamin B12, Seroquel, Vitamin D3 Pertinent Labs Reviewed. 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 Skin Integrity/Comment: [place] 17. Skin intact. Current %PO Fair (50-74%) Estimated Nutritional Goals Calories/Kcals/Kg IBW 125lb/56.8kg Kcals Calculated 1420-1704kcal (25-30kcal/kg) Protein Calculated 57g (1g/kg) Fluid: ml 1420-1704ml (1ml/kcal) Nutritional Problem 1. Problem Problem Inadequate oral food beverage intake related to Etiology unknown, possibly cognition aeb Signs/Symptoms: meeting 89% lower end kcal Malnutrition Alert Body Fat Depletion (Non-Severe) Mild Depletion Muscle Mass (Non-Severe) Mild Depletion Intervention/Recommendation Comments 1. Cotninue with low sodium diet. 2. Recommend Boost BID. Avg PO itnake is inadequate, meeting 89% lower end kcal needs. BMI 20.1, loose skin hx of fat wasting to arms, weight gain encouraged. Expected Outcomes/Goals Expected Outcomes/Goals 1. PO intake to meet at least 100% of estimated nutritinoal needs.
[2017-09-03] MEDS: Vitamin D3 2,000 IU SGL PO SCH (09:11)
--- NOTE | 2017-09-03 12:12 | Internal Medicine Prog Note ---
Internal Medicine Subjective - Subjective Service Date: 09/03/17 Patient is:: awake, interactive Per staff patient has:: no adverse event, poor appetite, poor oral intake, noncompliant, refusing care Internal Medicine Objective - Results Result Diagrams: 08/30/17 14:38 08/30/17 14:38 Recent Labs: Laboratory Last Values WBC 10.2 Th/cmm (4.8-10.8) 08/30/17 14:38 RBC 3.38 Mil/cmm (3.80-5.20) L 08/30/17 14:38 Hgb 10.4 gm/dL (12-16) L 08/30/17 14:38 Hct 30.5 % (41.0-60) L 08/30/17 14:38 MCV 90.3 fl (81-100) 08/30/17 14:38 MCH 30.8 pg (27.0-31.0) 08/30/17 14:38 MCHC Differential 34.1 pg (28.0-36.0) 08/30/17 14:38 RDW 16.3 % (11.5-20.0) 08/30/17 14:38 Plt Count 303 Th/cmm (150-400) D 08/30/17 14:38 MPV 8.5 fl 08/30/17 14:38 Neutrophils % 74.0 % (40.0-80.0) 08/30/17 14:38 Lymphocytes % 13.4 % (20.0-50.0) L 08/30/17 14:38 Monocytes % 10.1 % (2.0-10.0) H 08/30/17 14:38 Eosinophils % 1.6 % (0.0-5.0) 08/30/17 14:38 Basophils % 0.9 % (0.0-2.0) 08/30/17 14:38 Sodium 133 mEq/L (136-145) L 08/30/17 14:38 Potassium 4.3 mEq/L (3.5-5.1) 08/30/17 14:38 Chloride 104 mEq/L (98-107) 08/30/17 14:38 Carbon Dioxide 23.7 mEq/L (21.0-31.0) 08/30/17 14:38 Anion Gap 9.6 (7.0-16.0) 08/30/17 14:38 BUN 50 mg/dL (7-25) H 08/30/17 14:38 Creatinine 0.9 mg/dL (0.6-1.2) 08/30/17 14:38 Est GFR ( Amer) TNP 08/30/17 14:38 Est GFR (Non-Af Amer) TNP 08/30/17 14:38 BUN/Creatinine Ratio 55.6 08/30/17 14:38 Glucose 105 mg/dL (70-105) 08/30/17 14:38 Calcium 9.5 mg/dL (8.6-10.3) 08/30/17 14:38 Total Bilirubin 1.0 mg/dL (0.3-1.0) 08/30/17 14:38 AST 20 U/L (13-39) 08/30/17 14:38 ALT 9 U/L (7-52) 08/30/17 14:38 Alkaline Phosphatase 68 U/L (34-104) 08/30/17 14:38 Ammonia 29 umol/L (16-53) 08/30/17 14:38 Total Protein 6.5 gm/dL (6.0-8.3) 08/30/17 14:38 Albumin 3.6 gm/dL (3.7-5.3) L 08/30/17 14:38 Globulin 2.9 gm/dL 08/30/17 14:38 Albumin/Globulin Ratio 1.2 (1.0-1.8) 08/30/17 14:38 - Physical Exam Vitals and I&O: Vital Signs Temp 98 F 09/03/17 06:52 Pulse 79 09/03/17 09:12 Resp 20 09/03/17 08:00 BP 122/66 09/03/17 09:12 Pulse Ox 96 09/03/17 07:22 Intake & Output 09/02/17 09/03/17 09/03/17 18:59 06:59 18:59 Intake Total 960 120 Balance 960 120 Intake: Oral 960 120 Other: # Voids 3 3 # Bowel Movements 1 Active Medications: Current Medications Acetaminophen (Tylenol) 650 mg PO Q4H PRN PRN Reason: Pain Or Fever above 101 Stop: 10/25/17 17:51 Last Admin: 08/31/17 15:07 Dose: 650 mg Al Hydrox/Mg Hydrox/Simethicone (Maalox) 30 ml PO Q6HR PRN PRN Reason: Dyspepsia Stop: 10/25/17 17:51 Albuterol Sulfate (Albuterol 2.5mg/3ml Neb Ud) 2.5 mg HHN Q2HRT PRN PRN Reason: Shortness of Breath Stop: 10/25/17 18:59 Allopurinol (Zyloprim) 100 mg PO DAILY CASSI Stop: 10/26/17 08:59 Last Admin: 09/03/17 09:12 Dose: 100 mg Cyanocobalamin (Vitamin B12) 1,000 mcg PO DAILY CASSI Stop: 10/26/17 08:59 Last Admin: 09/03/17 09:11 Dose: 1,000 mcg Ipratropium [place] (Atrovent Neb 0.5mg/2.5ml) 0.5 mg HHN Q2HRT PRN PRN Reason: Shortness of Breath Stop: 10/25/17 17:56 Lorazepam (Ativan) 0.5 mg PO Q6HR PRN; Protocol PRN Reason: Anxiety Stop: 10/25/17 18:04 Last Admin: 08/28/17 17:24 Dose: 0.5 mg Losartan Potassium (Cozaar) 50 mg PO DAILY [facility] Stop: 10/26/17 08:59 Last Admin: 09/03/17 09:12 Dose: 50 mg Memantine (Namenda) 10 mg PO BID CASSI Stop: 10/26/17 08:59 Last Admin: 09/03/17 09:13 Dose: 10 mg Quetiapine Fumarate (Seroquel) 25 mg PO BID CASSI PRN Reason: Protocol Stop: 10/26/17 08:59 Last Admin: 09/03/17 09:11 Dose: 25 mg Tramadol HCl (Ultram) 50 mg PO DAILY PRN PRN Reason: Pain (Moderate) Stop: 10/25/17 18:00 Last Admin: 09/03/17 09:30 Dose: 50 mg Vitamin D (Vitamin D3) 4,000 iu PO DAILY CASSI Stop: 10/26/17 08:59 Last Admin: 09/03/17 09:11 Dose: 4,000 iu Zolpidem Tartrate (Ambien) 5 mg PO HS PRN PRN Reason: Insomnia Stop: 10/25/17 15:33 Last Admin: 08/29/17 22:30 Dose: 5 mg General: weak, lethargic, demented HEENT: NC/AT, PERRLA, EOMI, thinning hair, poor dentition Neck: Supple, No JVD, No LAD Lungs: CTAB Cardiovascular: RRR, Normal S1, Normal S2, with murmur Abdomen: soft, thin, non-distended, positive bowel sound Extremities: excoriation, contracture Neurological: no change, lethargic, disorganized Internal Medicine Assmt/Plan - Assessment Assessment: Acute Back pain Generalized Weakness Failure to thrive HTN CAD Dyslipidemia Arthritis Dementia Hyponatremia Acute Kidney Injury - Plan Plan: pain mgmt monitor bp continue current plan of care Nutritional Asmnt/Malnutr-PDOC - Dietary Evaluation Malnutrition Findings (Please click <Entered> for more info): Nutritional Asmnt/Malnutrition Start: 09/01/17 17: 10 Text: Status: Complete Freq: Document 09/01/17 17:10 GSUN (Rec: 09/01/17 17:49 [email or web address] [id number]) Nutritional Asmnt/Malnutrition Patient General Information Nutritional Screening Moderate Risk Screening Diagnosis Mood disorder, NOS, dementia Pertinent Medical Hx/Surgical Hx HTN, CAD, dyslipidemia, arthritis, dementia, appendectomy, hysterectomy Subjective Information 87 year old female. Visited pt during meal time. Pt seen eating in room, able to self feed, son and at bedside. Pt was pleasant, denied nutritinoal concerns at this time. Avg PO intake 55% of past 15 meals, meeting 89% lower end kcal and 100% protein needs. Pt report UBW 120lb. Discussed near underweight status and benefits of increasing PO intake for elders, pt nodded. Pt stated regarding food "so far I like it." Pt appeared lean overall, age considered, mild wasting to chest and clavicles, hanging loose skin to arms. Teeth intact, no difficulties. Current Diet Order/ Nutrition Support Low sodium 2gm Pertinent Medications Vitamin B12, Seroquel, Vitamin D3 Pertinent Labs Reviewed. Nutritional Hx/Data Height 5 ft 5 in Height (Calculated Centimeters) 165.1 Current Weight (lbs) 117 lb 11.2 oz Weight (Calculated Kilograms) 53.4 Weight (Calculated Grams) 33483.8 Marsing Body Weight 125 Recent Weight Change No GI Symptoms Cultural/Ethnic/Hinduism Belief Dislikes coffee, likes tea. Skin Integrity/Comment: Kavon 17. Skin intact. Current %PO Fair (50-74%) Estimated Nutritional Goals Calories/Kcals/Kg IBW 125lb/56.8kg Kcals Calculated 1420-1704kcal (25-30kcal/kg) Protein Calculated 57g (1g/kg) Fluid: ml 1420-1704ml (1ml/kcal) Nutritional Problem 1. Problem Problem Inadequate oral food beverage intake related to Etiology unknown, possibly cognition aeb Signs/Symptoms: meeting 89% lower end kcal Malnutrition Alert Body Fat Depletion (Non-Severe) Mild Depletion Muscle Mass (Non-Severe) Mild Depletion Intervention/Recommendation Comments 1. Cotninue with low sodium diet. 2. Recommend Boost BID. Avg PO itnake is inadequate, meeting 89% lower end kcal needs. BMI 20.1, loose skin hx of fat wasting to arms, weight gain encouraged. Expected Outcomes/Goals Expected Outcomes/Goals 1. PO intake to meet at least 100% of estimated nutritinoal needs.
--- NOTE | 2017-09-04 00:41 | Progress Notes ---
DATE: The patient was seen and evaluated. The patient's chart reviewed. This is Dr. Swift covering for Dr. James. SUBJECTIVE: Overnight nursing staff reported the patient continues to be very easily agitated and observed to be responding. Today on bhtc-bx-dsec evaluation, the patient is observed to be still easily disorganized, unable to really engage in the conversation, ____ to be still answering questions incoherent. Family is at bedside. Family reported the patient has been noncompliant with medications and has been having a lot of severe mood swings. Currently on [id number]-[id number], selectively mute. MENTAL STATUS EXAMINATION: Selectively mute, disorganized, unable to engage. Currently, the patient is on Seroquel, Namenda, without side effects. ASSESSMENT AND PLAN: The patient is an 81-year-old female who continues to be disorganized and difficult to engage in linear conversation. In the meantime, we will continue with Namenda 10 mg p.o. b.i.d., quetiapine was recently adjusted at 25 mg p.o. b.i.d. We will continue monitoring and evaluating and continue monitoring the use of Toradol for severe pain, which we also ____ lot of the patient's agitation. We will continue monitoring and evaluating, continue working on long-term primary medical team also. JOB# [id number]
[2017-09-04] MEDS: Vitamin D3 2,000 IU SGL PO SCH (08:47)
--- NOTE | 2017-09-05 08:06 | Diagnostic Imaging Report ---
CT scan of the brain without intravenous contrast HISTORY: Stroke, CVA, syncope Total DLP equals 555 CTDI equals 34.5 Axial sections were obtained from the base of the skull to the vertex. The exam is compared with the prior study of August 24, 2017. There is enlargement of ventricular system along with enlargement of cerebral sulci and subarachnoid cisterns reflecting atrophy. Extensive hypodensity is noted throughout the supratentorial periventricular white matter regions without mass effect. The findings may be associated with chronic small vessel ischemic disease. Subcentimeter hypodense foci noted in the left basal ganglia region unchanged. Findings consistent with an old lacunar infarct. No acute intracerebral hemorrhage. Again, no mass effect or shift of midline structures. No extra-axial masses or abnormal fluid collections. Atherosclerotic calcification seen in the region of the vertebral and basilar arteries at the base of the skull. IMPRESSION: 1. No acute abnormalities 2. Cerebral atrophy 3. Extensive supratentorial white matter changes that may be associated with chronic small vessel ischemic disease a 4. Small focus within the left basal ganglia region consistent with an old lacunar infarct 5. Atherosclerotic vascular changes
--- NOTE | 2017-09-05 12:42 | Discharge Summary ---
DATE OF DISCHARGE: 09/04/2017 FINAL DIAGNOSIS AND PRIMARY DIAGNOSIS: Unspecified psychosis. SECONDARY DIAGNOSIS: Dementia, moderate to severe. REASON FOR HOSPITALIZATION: The patient was admitted to the hospital because of confusion and disorientation. HOSPITAL COURSE: The patient was agitated and confused and disoriented. The patient was given Seroquel and Namenda. The patient was slightly calmer, but she was still confused. The patient developed syncope and the patient was transferred to ICU for close monitoring of her medical condition. The patient developed syncope and that is why her transfer to ICU. We will monitor patient's condition there. EXPECTED OUTCOME AFTER DISCHARGE: Fair and that depends on her medical condition. JOB# [id number]
== END 2017-09-04 11:36 | DRG 885 ==
LOC: GERO 14:36
PROVIDERS: ADMIT Psychiatry & Neurology Psychiatry; ATTEND Psychiatry & Neurology Psychiatry
DX: F29 Unspecified psychosis not due to a substance or known physiological condition (principal); N17.9 Acute kidney failure, unspecified; E87.1 Hypo-osmolality and hyponatremia; F03.91 Unspecified dementia, unspecified severity, with behavioral disturbance; F39 Unspecified mood [affective] disorder; M54.9 Dorsalgia, unspecified; R62.7 Adult failure to thrive; I10 Essential (primary) hypertension; I25.10 Atherosclerotic heart disease of native coronary artery without angina pectoris; E78.5 Hyperlipidemia, unspecified; M19.90 Unspecified osteoarthritis, unspecified site; R53.1 Weakness; Z88.1 Allergy status to other antibiotic agents
CPT/HCPCS: 36415-UA; 70450-TC; 80053-TC; 82140-TC; 82948-90; 85025-TC; 90899; 93005; 94760; 97530; G0410; X3904; Z7610

== ENCOUNTER 2017-09-04 11:29 | Inpatient (IN) | payer MEDICARE ==
--- NOTE | 2017-09-04 12:22 | General Progress Note ---
Subjective - Review of Systems Service Date: 09/04/17 Subjective: ER Physician Rapid Response Note: Responded to Rapid Response Call immediately when I was notified by phone at about 1117. On arrival, pt appeared to be stable in no distress. Pt reportedly had transient unresponsiveness when she just finished her shower and was straining to have a bowel movement. Pt did not fall because a member of nursing staff was next to her and kept her from falling. Pt was responsive to voice and tactile stimuli. She did not cooperate to answer questions. No definite mentation change according to nursing staff. On exam: VS P 84 R 18 BP 140/96 O2 saturation 98% on supplemental O2. Accuchek 121 HEENT NC/AT unremarkable. Neck Supple. No JVD. Carotid 2+/2+. No mass. COR RRR Lungs Clear Abdomen soft, nontender, nondistended, normoactive BS x 4, no R/G , no mass or HSM appreciated. Ext No c/c/e Neuro Alert and responsive to voice and tactile stimuli. Spontaneous movements noticed in all 4 extremities. Pt does not cooperate for full neurological exam. 12 lead EKG: NSR with VR 83. No acute ischemic changes. 1135 Pt remains stable. Pt's attending physician Dr. Morgan already received update from nursing staff. He has ordered head CT and ICU transfer for pt. Imp: Transient syncope by hx c/w vasovagal reaction. Stable. Plan: Attempt to reach Dr. Morgan by phone at about 1140. He called back at about 1145. He told my nurse that he already assumed care of pt and did not need to discuss with me further. Further care per Dr. Morgan.
[2017-09-04] MEDS: D5-0.9%NS 1,000 ML IV SCH (12:30)
[2017-09-04 13:07] LABS: % BASOPHILS 0.8 % (0.0-2.0); % EOSINOPHILS 1.3 % (0.0-5.0); % LYMPHOCYTES 8.3 % (20.0-50.0); % MONOCYTES 7.2 % (2.0-10.0); % NEUTROPHILS 82.4 % (40.0-80.0); BASOPHILE ABSOLUTE 0.1 Th/cumm (0-0.2); EOSINOPHILE ABSOLUTE 0.2 Th/cmm (0.1-0.4); HEMATOCRIT 30.1 % (41.0-60); HEMOGLOBIN 9.9 gm/dL (12-16); MEAN CELL VOLUME 91.4 fl (81-100); MEAN CORPUSCULAR HGB CONC 32.8 pg (28.0-36.0); MEAN PLATELET VOLUME 8.3 fl; MONOCYTE ABSOLUTE 0.9 Th/cmm (0.3-1.0); NEUTROPHILE ABSOLUTE 9.8 Th/cmm (1.8-8.0); PLATELET COUNT 286 Th/cmm (150-400); RED BLOOD COUNT 3.29 Mil/cmm (3.80-5.20); RED CELL DISTRIBUTION WIDTH 16.7 % (11.5-20.0)
[2017-09-04 13:25] LABS: ALB/GLOB RATIO 1.1 (1.0-1.8); ALBUMIN 3.3 gm/dL (3.7-5.3); ALKALINE PHOSPHATASE 72 U/L (34-104); ANION GAP 9.3 (7.0-16.0); BILIRUBIN,TOTAL 0.5 mg/dL (0.3-1.0); BUN - UREA NITROGEN 45 mg/dL (7-25); CALCIUM SERUM 8.9 mg/dL (8.6-10.3); CARBON DIOXIDE 25.2 mEq/L (21.0-31.0); CHLORIDE 104 mEq/L (98-107); GLUCOSE 154 mg/dL (70-105); POTASSIUM SERUM 4.5 mEq/L (3.5-5.1); SGOT 10 U/L (13-39); SGPT/ALT 6 U/L (7-52); SODIUM SERUM 134 mEq/L (136-145); TOTAL PROTEIN,SERUM 6.2 gm/dL (6.0-8.3)
[2017-09-04] MEDS ORDERED: Ipratropium Neb 0.5 mg/2.5 mL UD HHN PRN (14:59)
[2017-09-04] MEDS ORDERED: Maalox 30 mL Cup PO PRN (14:59)
[2017-09-04] MEDS ORDERED: Albuterol Nebulizer 2.5mg/3mL HHN PRN (14:59)
--- NOTE | 2017-09-04 14:59 | Internal Medicine Prog Note ---
Internal Medicine Subjective - Subjective Service Date: 09/04/17 ([id number] [facility] DICTATED) Internal Medicine Objective - Results Result Diagrams: 09/04/17 12:58 09/04/17 12:58 Recent Labs: Laboratory Last Values WBC 12.0 Th/cmm (4.8-10.8) H 09/04/17 12:58 RBC 3.29 Mil/cmm (3.80-5.20) L 09/04/17 12:58 Hgb 9.9 gm/dL (12-16) L 09/04/17 12:58 Hct 30.1 % (41.0-60) L 09/04/17 12:58 MCV 91.4 fl (81-100) 09/04/17 12:58 MCH 30.0 pg (27.0-31.0) 09/04/17 12:58 MCHC Differential 32.8 pg (28.0-36.0) 09/04/17 12:58 RDW 16.7 % (11.5-20.0) 09/04/17 12:58 Plt Count 286 Th/cmm (150-400) 09/04/17 12:58 MPV 8.3 fl 09/04/17 12:58 Neutrophils % 82.4 % (40.0-80.0) H 09/04/17 12:58 Lymphocytes % 8.3 % (20.0-50.0) L 09/04/17 12:58 Monocytes % 7.2 % (2.0-10.0) 09/04/17 12:58 Eosinophils % 1.3 % (0.0-5.0) 09/04/17 12:58 Basophils % 0.8 % (0.0-2.0) 09/04/17 12:58 Sodium 134 mEq/L (136-145) L 09/04/17 12:58 Potassium 4.5 mEq/L (3.5-5.1) 09/04/17 12:58 Chloride 104 mEq/L (98-107) 09/04/17 12:58 Carbon Dioxide 25.2 mEq/L (21.0-31.0) 09/04/17 12:58 Anion Gap 9.3 (7.0-16.0) 09/04/17 12:58 BUN 45 mg/dL (7-25) H 09/04/17 12:58 Creatinine 1.0 mg/dL (0.6-1.2) 09/04/17 12:58 Est GFR ( Amer) TNP 09/04/17 12:58 Est GFR (Non-Af Amer) TNP 09/04/17 12:58 BUN/Creatinine Ratio 45.0 09/04/17 12:58 Glucose 154 mg/dL (70-105) H 09/04/17 12:58 Calcium 8.9 mg/dL (8.6-10.3) 09/04/17 12:58 Total Bilirubin 0.5 mg/dL (0.3-1.0) 09/04/17 12:58 AST 10 U/L (13-39) L 09/04/17 12:58 ALT 6 U/L (7-52) L 09/04/17 12:58 Alkaline Phosphatase 72 U/L (34-104) 09/04/17 12:58 Total Protein 6.2 gm/dL (6.0-8.3) 09/04/17 12:58 Albumin 3.3 gm/dL (3.7-5.3) L 09/04/17 12:58 Globulin 2.9 gm/dL 09/04/17 12:58 Albumin/Globulin Ratio 1.1 (1.0-1.8) 09/04/17 12:58 - Physical Exam Vitals and I&O: Vital Signs Temp 99.2 F 09/04/17 12:03 Pulse 87 09/04/17 12:03 Resp 21 09/04/17 12:03 BP 145/78 09/04/17 12:03 Pulse Ox 98 09/04/17 12:03 Active Medications: Current Medications Dextrose/Sodium Chloride (D5-0.9%Ns) 1,000 mls @ 80 mls/hr IV .[id number] CASSI Stop: 11/03/17 12:14 Internal Medicine Assmt/Plan - Assessment Assessment: Syncope acute back pain acute kidney injury generalized weakness cad dyslipidemia dementia hx frequent falls arthritis
--- NOTE | 2017-09-04 14:59 | Internal Medicine Prog Note ---
Internal Medicine Subjective - Subjective Service Date: 09/04/17 ([id number] [facility] DICTATED) Internal Medicine Objective - Results Result Diagrams: 09/04/17 12:58 09/04/17 12:58 Recent Labs: Laboratory Last Values WBC 12.0 Th/cmm (4.8-10.8) H 09/04/17 12:58 RBC 3.29 Mil/cmm (3.80-5.20) L 09/04/17 12:58 Hgb 9.9 gm/dL (12-16) L 09/04/17 12:58 Hct 30.1 % (41.0-60) L 09/04/17 12:58 MCV 91.4 fl (81-100) 09/04/17 12:58 MCH 30.0 pg (27.0-31.0) 09/04/17 12:58 MCHC Differential 32.8 pg (28.0-36.0) 09/04/17 12:58 RDW 16.7 % (11.5-20.0) 09/04/17 12:58 Plt Count 286 Th/cmm (150-400) 09/04/17 12:58 MPV 8.3 fl 09/04/17 12:58 Neutrophils % 82.4 % (40.0-80.0) H 09/04/17 12:58 Lymphocytes % 8.3 % (20.0-50.0) L 09/04/17 12:58 Monocytes % 7.2 % (2.0-10.0) 09/04/17 12:58 Eosinophils % 1.3 % (0.0-5.0) 09/04/17 12:58 Basophils % 0.8 % (0.0-2.0) 09/04/17 12:58 Sodium 134 mEq/L (136-145) L 09/04/17 12:58 Potassium 4.5 mEq/L (3.5-5.1) 09/04/17 12:58 Chloride 104 mEq/L (98-107) 09/04/17 12:58 Carbon Dioxide 25.2 mEq/L (21.0-31.0) 09/04/17 12:58 Anion Gap 9.3 (7.0-16.0) 09/04/17 12:58 BUN 45 mg/dL (7-25) H 09/04/17 12:58 Creatinine 1.0 mg/dL (0.6-1.2) 09/04/17 12:58 Est GFR ( Amer) TNP 09/04/17 12:58 Est GFR (Non-Af Amer) TNP 09/04/17 12:58 BUN/Creatinine Ratio 45.0 09/04/17 12:58 Glucose 154 mg/dL (70-105) H 09/04/17 12:58 Calcium 8.9 mg/dL (8.6-10.3) 09/04/17 12:58 Total Bilirubin 0.5 mg/dL (0.3-1.0) 09/04/17 12:58 AST 10 U/L (13-39) L 09/04/17 12:58 ALT 6 U/L (7-52) L 09/04/17 12:58 Alkaline Phosphatase 72 U/L (34-104) 09/04/17 12:58 Total Protein 6.2 gm/dL (6.0-8.3) 09/04/17 12:58 Albumin 3.3 gm/dL (3.7-5.3) L 09/04/17 12:58 Globulin 2.9 gm/dL 09/04/17 12:58 Albumin/Globulin Ratio 1.1 (1.0-1.8) 09/04/17 12:58 - Physical Exam Vitals and I&O: Vital Signs Temp 99.2 F 09/04/17 12:03 Pulse 87 09/04/17 12:03 Resp 21 09/04/17 12:03 BP 145/78 09/04/17 12:03 Pulse Ox 98 09/04/17 12:03 Active Medications: Current Medications Dextrose/Sodium Chloride (D5-0.9%Ns) 1,000 mls @ 80 mls/hr IV .[id number] CASSI Stop: 11/03/17 12:14 Internal Medicine Assmt/Plan - Assessment Assessment: Syncope acute back pain acute kidney injury generalized weakness cad dyslipidemia dementia hx frequent falls arthritis
--- NOTE | 2017-09-04 14:59 | Internal Medicine Prog Note ---
Internal Medicine Subjective - Subjective Service Date: 09/04/17 ([id number] [facility] DICTATED) Internal Medicine Objective - Results Result Diagrams: 09/04/17 12:58 09/04/17 12:58 Recent Labs: Laboratory Last Values WBC 12.0 Th/cmm (4.8-10.8) H 09/04/17 12:58 RBC 3.29 Mil/cmm (3.80-5.20) L 09/04/17 12:58 Hgb 9.9 gm/dL (12-16) L 09/04/17 12:58 Hct 30.1 % (41.0-60) L 09/04/17 12:58 MCV 91.4 fl (81-100) 09/04/17 12:58 MCH 30.0 pg (27.0-31.0) 09/04/17 12:58 MCHC Differential 32.8 pg (28.0-36.0) 09/04/17 12:58 RDW 16.7 % (11.5-20.0) 09/04/17 12:58 Plt Count 286 Th/cmm (150-400) 09/04/17 12:58 MPV 8.3 fl 09/04/17 12:58 Neutrophils % 82.4 % (40.0-80.0) H 09/04/17 12:58 Lymphocytes % 8.3 % (20.0-50.0) L 09/04/17 12:58 Monocytes % 7.2 % (2.0-10.0) 09/04/17 12:58 Eosinophils % 1.3 % (0.0-5.0) 09/04/17 12:58 Basophils % 0.8 % (0.0-2.0) 09/04/17 12:58 Sodium 134 mEq/L (136-145) L 09/04/17 12:58 Potassium 4.5 mEq/L (3.5-5.1) 09/04/17 12:58 Chloride 104 mEq/L (98-107) 09/04/17 12:58 Carbon Dioxide 25.2 mEq/L (21.0-31.0) 09/04/17 12:58 Anion Gap 9.3 (7.0-16.0) 09/04/17 12:58 BUN 45 mg/dL (7-25) H 09/04/17 12:58 Creatinine 1.0 mg/dL (0.6-1.2) 09/04/17 12:58 Est GFR ( Amer) TNP 09/04/17 12:58 Est GFR (Non-Af Amer) TNP 09/04/17 12:58 BUN/Creatinine Ratio 45.0 09/04/17 12:58 Glucose 154 mg/dL (70-105) H 09/04/17 12:58 Calcium 8.9 mg/dL (8.6-10.3) 09/04/17 12:58 Total Bilirubin 0.5 mg/dL (0.3-1.0) 09/04/17 12:58 AST 10 U/L (13-39) L 09/04/17 12:58 ALT 6 U/L (7-52) L 09/04/17 12:58 Alkaline Phosphatase 72 U/L (34-104) 09/04/17 12:58 Total Protein 6.2 gm/dL (6.0-8.3) 09/04/17 12:58 Albumin 3.3 gm/dL (3.7-5.3) L 09/04/17 12:58 Globulin 2.9 gm/dL 09/04/17 12:58 Albumin/Globulin Ratio 1.1 (1.0-1.8) 09/04/17 12:58 - Physical Exam Vitals and I&O: Vital Signs Temp 99.2 F 09/04/17 12:03 Pulse 87 09/04/17 12:03 Resp 21 09/04/17 12:03 BP 145/78 09/04/17 12:03 Pulse Ox 98 09/04/17 12:03 Active Medications: Current Medications Dextrose/Sodium Chloride (D5-0.9%Ns) 1,000 mls @ 80 mls/hr IV .[id number] CASSI Stop: 11/03/17 12:14 Internal Medicine Assmt/Plan - Assessment Assessment: Syncope acute back pain acute kidney injury generalized weakness cad dyslipidemia dementia hx frequent falls arthritis
[2017-09-04 15:49] LABS: pH 7.44 (7.35-7.45)
[2017-09-04 19:19] VITALS: BP 138/78
--- NOTE | 2017-09-04 19:50 | Progress Notes ---
DATE: 09/04/2017 SUBJECTIVE: The patient was seen and evaluated. The patient's chart reviewed. OBJECTIVE: VITAL SIGNS: Reviewed, stable. Overnight nursing staff reported that the patient slept well, but also a little bit more awake today. Today on hiqx-tn-fdan evaluation, the patient observed to be little bit more awake, but still difficulty engaging in the coherent conversation. MENTAL STATUS EXAMINATION: Still disorganized, selectively mute, unable to engage in a linear conversation. ASSESSMENT AND PLAN: This is an 81-year-old female who continues to be disorganized and difficulty engaging in a linear conversation, unable to formulate safe plan. We will continue with the current medication regimen ____ recently adjusted and still reaching steady state. We will continue monitoring Toradol. JOB# [id number]
--- NOTE | 2017-09-04 19:50 | Progress Notes ---
DATE: 09/04/2017 SUBJECTIVE: The patient was seen and evaluated. The patient's chart reviewed. OBJECTIVE: VITAL SIGNS: Reviewed, stable. Overnight nursing staff reported that the patient slept well, but also a little bit more awake today. Today on ccao-ea-foot evaluation, the patient observed to be little bit more awake, but still difficulty engaging in the coherent conversation. MENTAL STATUS EXAMINATION: Still disorganized, selectively mute, unable to engage in a linear conversation. ASSESSMENT AND PLAN: This is an 81-year-old female who continues to be disorganized and difficulty engaging in a linear conversation, unable to formulate safe plan. We will continue with the current medication regimen ____ recently adjusted and still reaching steady state. We will continue monitoring Toradol. JOB# [id number]
--- NOTE | 2017-09-04 19:50 | Progress Notes ---
DATE: 09/04/2017 SUBJECTIVE: The patient was seen and evaluated. The patient's chart reviewed. OBJECTIVE: VITAL SIGNS: Reviewed, stable. Overnight nursing staff reported that the patient slept well, but also a little bit more awake today. Today on keok-je-vixb evaluation, the patient observed to be little bit more awake, but still difficulty engaging in the coherent conversation. MENTAL STATUS EXAMINATION: Still disorganized, selectively mute, unable to engage in a linear conversation. ASSESSMENT AND PLAN: This is an 81-year-old female who continues to be disorganized and difficulty engaging in a linear conversation, unable to formulate safe plan. We will continue with the current medication regimen ____ recently adjusted and still reaching steady state. We will continue monitoring Toradol. JOB# [id number]
[2017-09-05 04:46] LABS: % BASOPHILS 0.9 % (0.0-2.0); % EOSINOPHILS 2.9 % (0.0-5.0); % LYMPHOCYTES 17.2 % (20.0-50.0); BASOPHILE ABSOLUTE 0.1 Th/cumm (0-0.2); EOSINOPHILE ABSOLUTE 0.3 Th/cmm (0.1-0.4); HEMATOCRIT 27.9 % (41.0-60); HEMOGLOBIN 9.3 gm/dL (12-16); LYMPHOCYTE ABSOLUTE 1.9 Th/cmm (1.5-3.0); MEAN CELL VOLUME 91.1 fl (81-100); MEAN CORPUSCULAR HEMOGLOBIN 30.3 pg (27.0-31.0); MEAN CORPUSCULAR HGB CONC 33.2 pg (28.0-36.0); MEAN PLATELET VOLUME 8.8 fl; MONOCYTE ABSOLUTE 1.1 Th/cmm (0.3-1.0); NEUTROPHILE ABSOLUTE 7.7 Th/cmm (1.8-8.0); PLATELET COUNT 273 Th/cmm (150-400); RED BLOOD COUNT 3.06 Mil/cmm (3.80-5.20); RED CELL DISTRIBUTION WIDTH 16.6 % (11.5-20.0); WHITE BLOOD COUNT 11.1 Th/cmm (4.8-10.8)
[2017-09-05 05:13] LABS: ANION GAP 9.7 (7.0-16.0); BUN - UREA NITROGEN 33 mg/dL (7-25); CALCIUM SERUM 8.6 mg/dL (8.6-10.3); CHLORIDE 107 mEq/L (98-107); CREATININE - SERUM 0.9 mg/dL (0.6-1.2); GLUCOSE 98 mg/dL (70-105); POTASSIUM SERUM 3.7 mEq/L (3.5-5.1); SODIUM SERUM 136 mEq/L (136-145)
[2017-09-05] MEDS: D5-0.9%NS 1,000 ML IV SCH ×2 (07:23→16:11)
--- NOTE | 2017-09-05 07:56 | Diagnostic Imaging Report ---
Bilateral carotid Doppler ultrasound exam HISTORY 50 Sonographic sector images were obtained through the carotid bifurcation regions bilaterally. Associated Doppler data was obtained. The exam of the right side demonstrates mild to moderate diffuse atherosclerotic plaque throughout the bifurcation region. No significant focal stenosis or narrowing is seen. Antegrade vertebral artery flow. Velocities and flow ratios are normal (ICC/CCA equals 1.2). The exam of the left side demonstrates mild diffuse atherosclerotic plaque throughout the bifurcation region. No significant focal stenosis identified. Antegrade vertebral artery flow. Velocities and flow ratios are normal breath is ICC size CCA equals 1.1). IMPRESSION: 1. Mild to moderate diffuse atherosclerotic changes. No significant focal narrowing or stenosis identified.
--- NOTE | 2017-09-05 08:13 | Diagnostic Imaging Report ---
Exam: KUB of the abdomen. HISTORY: Fecal impaction. Findings: Portable exam the abdomen 1246 hours reviewed. The study demonstrates degenerative changes of the distal thoracic and lumbar spine with scoliotic convexity to the right. There is evidence for mild distention of the small bowel loops. Large amount of fecal content in the rectum is noted. No abnormal masses or calcifications identified. IMPRESSION: Large amount of fecal content in the rectum.
[2017-09-05] MEDS: Vitamin D3 2,000 IU SGL PO SCH (08:23)
--- NOTE | 2017-09-05 10:01 | Progress Notes ---
DATE: 09/05/2017 SUBJECTIVE: The patient was transferred from Geropsych Unit to the Medical Floor because of syncope. Chart reviewed and the patient interviewed. The patient currently is calm. She does not have any somatic complaint. She is pleasantly confused and she thinks that she is "going home." Not agitated and not as irritable. Also, easier to redirect her. ASSESSMENT: The patient is not as agitated and not as psychotic. TREATMENT PLAN: We will continue monitoring her condition in ICU. We are going o decrease the Seroquel and we will also continue to follow up closely. JOB# [id number]
--- NOTE | 2017-09-05 14:18 | Cardiology ---
09/04/[address] Morgan. M-MODE ECHOCARDIOGRAM: Mitral valve, anterior leaflet of mitral valve shows normal excursion, EF velocity. Posterior leaflet of mitral valve shows normal excursion. Left ventricular posterior wall shows increased thickness, normal excursion. Interventricular septum showed normal thickness excursion. Ejection fraction 60%. Left atrium normal. Aortic root shows normal dimension, normal excursion of aortic leaflets. 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 2D ECHO: Long axis view showed normal sized left ventricle with hypertrophy of the left ventricle. Left atrium normal. Aortic root shows normal dimension, normal excursion of aortic leaflets. Short axis view of mitral valve normal. Short axis view of aortic valve normal. Apical four chamber view showed normal sized left ventricle, left atrium, right ventricle, right atrium, tricuspid and mitral valve, ejection fraction 60%. 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 Doppler study shows mild mitral regurgitation, mild tricuspid regurgitation, mild aortic regurgitation. [facility]# [id number]
--- NOTE | 2017-09-05 17:24 | History & Physical ---
ADMIT DATE: 09/04/2017 CHIEF COMPLAINT: Syncope and altered mental status. HISTORY OF PRESENT ILLNESS: This is an 87-year-old female, who is well known to me. The patient was recently at the [facility], rapid response was called on the patient. The patient had an episode of altered mental status. The patient . The patient is now transferred to the ICU unit. The patient had a 12-lead EKG done and it was normal sinus rhythm, no acute ischemic changes. Upon examination, the patient is awake, alert, does not remember what happened. PAST MEDICAL HISTORY: Hypertension, CAD, dyslipidemia, arthritis, dementia. SOCIAL HISTORY: The patient is a skilled nursing resident, requiring 24-hour nursing care. PAST SURGICAL HISTORY: Appendectomy and hysterectomy. MEDICATIONS: Please see medication reconciliation sheet. REVIEW OF SYSTEMS: Unable to obtain, the patient is confused. PHYSICAL EXAMINATION: GENERAL: Elderly female, awake, alert, in no apparent distress. VITAL SIGNS: Temperature 99.2, heart rate 87, blood pressure , respirations 21, O2 of 98%. HEENT: Head; normocephalic, atraumatic. NECK: Supple. No mass. LUNGS: Clear bilaterally. HEART: Regular rhythm. ABDOMEN: Soft, nontender. LABORATORY DATA: WBC 2.0, H and H 10.9 and 30.1. Platelet of 286. Sodium 134, potassium 4.5, BUN 45, creatinine 1.0. ASSESSMENT: Syncope, acute back pain, generalized weakness, failure to thrive, hypertension, coronary artery disease, dyslipidemia, arthritis, dementia, frequent falls, acute kidney injury. PLAN: ICU monitoring, aggressive IV fluids. Monitor the patient's BUN and creatinine. We will have physical therapy to evaluate the patient. Get a KUB, also carotid ultrasound. Continue to follow this patient. JOB# [id number]
[2017-09-05 19:42] LABS: URINE MICROSCOPIC INDICATED? YES; URINE SOURCE CATH
[2017-09-05 20:04] LABS: URINE BILIRUBIN NEGATIVE (NEGATIVE); URINE BLOOD TRACE (NEGATIVE); URINE GLUCOSE (UA) NEGATIVE (NEGATIVE); URINE KETONE NEGATIVE (NEGATIVE); URINE LEUKOCYTE ESTERASE LARGE (NEGATIVE); URINE NITRATE NEGATIVE (NEGATIVE); URINE PH 5.5 (4.6 - 8.0); URINE PROTEIN NEGATIVE (NEGATIVE); URINE UROBILINOGEN 0.2 E.U./dL (0.2 - 1.0)
[2017-09-05 20:08] LABS: URINE CLARITY HAZY (CLEAR); URINE COLOR YELLOW
[2017-09-05 20:09] LABS: URINE BACTERIA MANY /hpf (NONE SEEN); URINE EPITHELIAL CELLS FEW /lpf (FEW)
[2017-09-05 20:11] LABS: URINE WBC >100 /hpf (0-5)
--- NOTE | 2017-09-06 00:48 | Consultation ---
DATE OF CONSULTATION: 09/05/2017 HISTORY OF PRESENT ILLNESS: This is an 87-year-old female with episodes where she became unresponsive, seems to be doing better. She is obviously very confused. Physical therapy tried to get her up. She is very weak, unable to get up and walk, more weakness in the left leg. PAST MEDICAL HISTORY: Dementia, dyslipidemia, hypertension, and coronary artery disease. The patient with episodes of falls. Unsteadiness. PAST SURGICAL HISTORY: Appendix, hysterectomy. SOCIAL HISTORY: Does not smoke or drink. MEDICATIONS: Per reconciliation. REVIEW OF SYSTEMS: No seizures. The patient is confused, answers questions. Weakness in left leg. Difficulty getting up. The patient has no chest pain, no shortness of breath, and no cough, sputum, or hemoptysis. PHYSICAL EXAMINATION: VITAL SIGNS: Temperature 99.2, blood pressure 140/70, and pulse is 80. NECK: Supple. No bruits. HEART: Sounds S1 and S2. LUNGS: Clear. NEUROLOGIC: The patient is awake and alert. She gives me her name, her age, she is probably wrong by a couple of years, but able to tell me 85. The patient is able to name simple objects such as pen and glasses. She follows simple instructions. She lifted her arms up and opened and closed her eyes. She did not know what day, what month, what year. Short-term memory essentially 0/3. CRANIAL: Pupils react to light. Full eye movement. No nystagmus. No facial weakness. MOTOR: She will lift both arms up. Legs, she will lift both, but weaker on the left compared to the right. INVESTIGATIONS: The patient's carotid Doppler, no significant stenosis. The patient's CT scan of head is pending. IMPRESSION: 1. Altered level of consciousness, unclear etiology. Rule out transient ischemic anemia. 2. The patient's carotid Doppler is fine. We will do a CT scan of the head. 3. Rule out intracranial pathology. The patient with history of falls. PLAN: CT scan of the head and labs. Physical therapy ____. JOB# [id number]
--- NOTE | 2017-09-06 08:16 | Progress Notes ---
DATE: 09/06/2017 SUBJECTIVE: Chart reviewed and the patient interviewed. Also discussed the patient's condition with the staff and reviewed records and labs. The patient reported that the patient during last night she was "like a mad person." The patient started to pull IVs and she started to tear things around her and she was extremely agitated and irritable. They added that they gave her Ativan, but apparently it did not help her. Also, the patient was unable to follow any of the staff directions because of her agitation and because of her irritability. She also still seems to be slightly confused and unable to answer any of my questions coherently. ASSESSMENT: The patient is more psychotic and agitated. TREATMENT PLAN: We will continue monitoring her behavior. Also, we will increase Seroquel to 25 mg twice a day. Also, we will continue to work on her agitation and her aggressive behavior. According to the staff, family does not want the patient to go back to [facility] and we will try to see the patient while in the ICU and in medical floor. JOB# [id number]
[2017-09-06] MEDS: Vitamin D3 2,000 IU SGL PO SCH (10:56)
--- NOTE | 2017-09-06 12:22 | Internal Medicine Prog Note ---
Internal Medicine Subjective - Subjective Service Date: 09/06/17 (DC SUMMARY [id number]) Internal Medicine Objective - Results Result Diagrams: 09/05/17 04:25 09/05/17 04:25 Recent Labs: Laboratory Last Values WBC 11.1 Th/cmm (4.8-10.8) H 09/05/17 04:25 RBC 3.06 Mil/cmm (3.80-5.20) L 09/05/17 04:25 Hgb 9.3 gm/dL (12-16) L 09/05/17 04:25 Hct 27.9 % (41.0-60) L 09/05/17 04:25 MCV 91.1 fl (81-100) 09/05/17 04:25 MCH 30.3 pg (27.0-31.0) 09/05/17 04:25 MCHC Differential 33.2 pg (28.0-36.0) 09/05/17 04:25 RDW 16.6 % (11.5-20.0) 09/05/17 04:25 Plt Count 273 Th/cmm (150-400) 09/05/17 04:25 MPV 8.8 fl 09/05/17 04:25 Neutrophils % 69.0 % (40.0-80.0) 09/05/17 04:25 Lymphocytes % 17.2 % (20.0-50.0) L 09/05/17 04:25 Monocytes % 10.0 % (2.0-10.0) 09/05/17 04:25 Eosinophils % 2.9 % (0.0-5.0) 09/05/17 04:25 Basophils % 0.9 % (0.0-2.0) 09/05/17 04:25 Specimen Source Arterial 09/04/17 15:25 Sample Site RB 09/04/17 15:25 pH 7.44 (7.35-7.45) 09/04/17 15:25 pCO2 37.0 mmHg (35.0-45.0) 09/04/17 15:25 pO2 236.0 mmHg (80.0-100.0) H 09/04/17 15:25 HCO3 25.9 mEq/L (20.0-26.0) 09/04/17 15:25 Base Excess 1.1 mEq/L (-3.0-3.0) 09/04/17 15:25 O2 Saturation 100.0 % (92.0-100.0) 09/04/17 15:25 Elan Test NA 09/04/17 15:25 Vent Rate NA 09/04/17 15:25 Inspired O2 71 09/04/17 15:25 Tidal Volume NA 09/04/17 15:25 PEEP NA 09/04/17 15:25 Pressure (ins/psv/peep) NA 09/04/17 15:25 Critical Value SH 09/04/17 15:25 Sodium 136 mEq/L (136-145) 09/05/17 04:25 Potassium 3.7 mEq/L (3.5-5.1) 09/05/17 04:25 Chloride 107 mEq/L (98-107) 09/05/17 04:25 Carbon Dioxide 23.0 mEq/L (21.0-31.0) 09/05/17 04:25 Anion Gap 9.7 (7.0-16.0) 09/05/17 04:25 BUN 33 mg/dL (7-25) H 09/05/17 04:25 Creatinine 0.9 mg/dL (0.6-1.2) 09/05/17 04:25 Est GFR ( Amer) TNP 09/05/17 04:25 Est GFR (Non-Af Amer) TNP 09/05/17 04:25 BUN/Creatinine Ratio 36.7 09/05/17 04:25 Glucose 98 mg/dL (70-105) 09/05/17 04:25 Calcium 8.6 mg/dL (8.6-10.3) 09/05/17 04:25 Total Bilirubin 0.5 mg/dL (0.3-1.0) 09/04/17 12:58 AST 10 U/L (13-39) L 09/04/17 12:58 ALT 6 U/L (7-52) L 09/04/17 12:58 Alkaline Phosphatase 72 U/L (34-104) 09/04/17 12:58 C-Reactive Protein 7.5 mg/dL (0.0-0.9) H 09/06/17 04:23 Total Protein 6.2 gm/dL (6.0-8.3) 09/04/17 12:58 Albumin 3.3 gm/dL (3.7-5.3) L 09/04/17 12:58 Globulin 2.9 gm/dL 09/04/17 12:58 Albumin/Globulin Ratio 1.1 (1.0-1.8) 09/04/17 12:58 TSH 1.62 uIU/ml (0.34-5.60) 09/06/17 04:23 Urine Source CATH 09/05/17 16:20 Urine Color YELLOW 09/05/17 16:20 Urine Clarity HAZY (CLEAR) 09/05/17 16:20 Urine pH 5.5 (4.6 - 8.0) 09/05/17 16:20 Ur Specific [place] <= 1.005 (1.005-1.030) 09/05/17 16:20 Urine Protein NEGATIVE mg/dL (NEGATIVE) 09/05/17 16:20 Urine Glucose (UA) NEGATIVE mg/dL (NEGATIVE) 09/05/17 16:20 Urine Ketones NEGATIVE mg/dL (NEGATIVE) 09/05/17 16:20 Urine Blood TRACE (NEGATIVE) 09/05/17 16:20 Urine Nitrate NEGATIVE (NEGATIVE) 09/05/17 16:20 Urine Bilirubin NEGATIVE (NEGATIVE) 09/05/17 16:20 Urine Urobilinogen 0.2 E.U./dL (0.2 - 1.0) 09/05/17 16:20 Ur Leukocyte Esterase LARGE (NEGATIVE) H 09/05/17 16:20 Urine RBC 2-5 /hpf (0-5) 09/05/17 16:20 Urine WBC >100 /hpf (0-5) H 09/05/17 16:20 Ur Epithelial Cells FEW /lpf (FEW) 09/05/17 16:20 Urine Bacteria MANY /hpf (NONE SEEN) 09/05/17 16:20 - Physical Exam Vitals and I&O: Vital Signs Temp 98.2 F 09/05/17 16:00 Pulse 91 09/06/17 04:00 Resp 16 09/06/17 08:00 BP 128/57 09/06/17 04:00 Pulse Ox 95 09/06/17 04:00 Intake & Output 09/05/17 09/06/17 09/06/17 18:59 06:59 18:59 Intake Total 1004 300 Output Total 1 1 Balance 1003 299 Weight (lbs) 117 lb 117 lb Intake: Intake, IV Amount 704 D5-0.9%Ns 1,000 ml @ 80 704 mls/hr IV .[id number] [facility] Rx #:[id number] Oral 300 300 Output: Stool 1 1 Other: # Voids 3 5 Stool Characteristics [place] Active Medications: Current Medications Acetaminophen (Tylenol) 650 mg PO Q4H PRN PRN Reason: Pain Or Fever above 101 Stop: 11/03/17 14:58 Al Hydrox/Mg Hydrox/Simethicone (Maalox) 30 ml PO Q6HR PRN PRN Reason: Dyspepsia Stop: 11/03/17 14:58 Albuterol Sulfate (Albuterol 2.5mg/3ml Neb Ud) 2.5 mg HHN Q2HRT PRN PRN Reason: Shortness of Breath Stop: 11/03/17 14:58 Allopurinol (Zyloprim) 100 mg PO DAILY [facility] Stop: 11/04/17 08:59 Last Admin: 09/06/17 10:56 Dose: Not Given Bisacodyl (Dulcolax 10 Mg Supp) 10 mg RC DAILY PRN PRN Reason: Constipation Stop: 11/04/17 13:33 Cyanocobalamin (Vitamin B12) 1,000 mcg PO DAILY [facility] Stop: 11/04/17 08:59 Last Admin: 09/06/17 10:56 Dose: Not Given Docusate Sodium (Colace) 100 mg PO BID [facility] Stop: 11/04/17 16:59 Last Admin: 09/06/17 10:56 Dose: Not Given Dextrose/Sodium Chloride (D5-0.9%Ns) 1,000 mls @ 80 mls/hr IV .[id number] [facility] Stop: 11/03/17 12:14 Last Admin: 09/05/17 16:11 Dose: 80 mls/hr Ipratropium [place] (Atrovent Neb 0.5mg/2.5ml) 0.5 mg HHN Q2HRT PRN PRN Reason: Shortness of Breath Stop: 11/03/17 14:58 Lorazepam (Ativan) 0.5 mg PO Q6HR PRN; Protocol PRN Reason: Anxiety Stop: 11/03/17 14:58 Last Admin: 09/05/17 20:07 Dose: 0.5 mg Losartan Potassium (Cozaar) 50 mg PO DAILY [facility] Stop: 11/04/17 08:59 Last Admin: 09/06/17 10:56 Dose: Not Given Memantine (Namenda) 10 mg PO BID [facility] Stop: 11/03/17 16:59 Last Admin: 09/06/17 10:56 Dose: Not Given Quetiapine Fumarate (Seroquel) 25 mg PO BID [facility] PRN Reason: Protocol Stop: 11/03/17 08:59 Last Admin: 09/06/17 10:56 Dose: Not Given Senna (Senna) 8.6 mg PO HS [facility] Stop: 11/04/17 20:59 Last Admin: 09/05/17 20:07 Dose: 8.6 mg Tramadol HCl (Ultram) 50 mg PO DAILY PRN PRN Reason: Pain (Moderate) Stop: 11/03/17 14:58 Last Admin: 09/04/17 15:57 Dose: 50 mg Vitamin D (Vitamin D3) 4,000 iu PO DAILY [facility] Stop: 11/04/17 08:59 Last Admin: 09/06/17 10:56 Dose: Not Given Zolpidem Tartrate (Ambien) 5 mg PO HS PRN PRN Reason: Insomnia Stop: 11/03/17 14:58 Internal Medicine Assmt/Plan - Assessment Assessment: Syncope acute back pain acute kidney injury generalized weakness cad dyslipidemia dementia hx frequent falls arthritis
--- NOTE | 2017-09-06 12:22 | Internal Medicine Prog Note ---
Internal Medicine Subjective - Subjective Service Date: 09/06/17 (DC SUMMARY [id number]) Internal Medicine Objective - Results Result Diagrams: 09/05/17 04:25 09/05/17 04:25 Recent Labs: Laboratory Last Values WBC 11.1 Th/cmm (4.8-10.8) H 09/05/17 04:25 RBC 3.06 Mil/cmm (3.80-5.20) L 09/05/17 04:25 Hgb 9.3 gm/dL (12-16) L 09/05/17 04:25 Hct 27.9 % (41.0-60) L 09/05/17 04:25 MCV 91.1 fl (81-100) 09/05/17 04:25 MCH 30.3 pg (27.0-31.0) 09/05/17 04:25 MCHC Differential 33.2 pg (28.0-36.0) 09/05/17 04:25 RDW 16.6 % (11.5-20.0) 09/05/17 04:25 Plt Count 273 Th/cmm (150-400) 09/05/17 04:25 MPV 8.8 fl 09/05/17 04:25 Neutrophils % 69.0 % (40.0-80.0) 09/05/17 04:25 Lymphocytes % 17.2 % (20.0-50.0) L 09/05/17 04:25 Monocytes % 10.0 % (2.0-10.0) 09/05/17 04:25 Eosinophils % 2.9 % (0.0-5.0) 09/05/17 04:25 Basophils % 0.9 % (0.0-2.0) 09/05/17 04:25 Specimen Source Arterial 09/04/17 15:25 Sample Site RB 09/04/17 15:25 pH 7.44 (7.35-7.45) 09/04/17 15:25 pCO2 37.0 mmHg (35.0-45.0) 09/04/17 15:25 pO2 236.0 mmHg (80.0-100.0) H 09/04/17 15:25 HCO3 25.9 mEq/L (20.0-26.0) 09/04/17 15:25 Base Excess 1.1 mEq/L (-3.0-3.0) 09/04/17 15:25 O2 Saturation 100.0 % (92.0-100.0) 09/04/17 15:25 Elan Test NA 09/04/17 15:25 Vent Rate NA 09/04/17 15:25 Inspired O2 71 09/04/17 15:25 Tidal Volume NA 09/04/17 15:25 PEEP NA 09/04/17 15:25 Pressure (ins/psv/peep) NA 09/04/17 15:25 Critical Value SH 09/04/17 15:25 Sodium 136 mEq/L (136-145) 09/05/17 04:25 Potassium 3.7 mEq/L (3.5-5.1) 09/05/17 04:25 Chloride 107 mEq/L (98-107) 09/05/17 04:25 Carbon Dioxide 23.0 mEq/L (21.0-31.0) 09/05/17 04:25 Anion Gap 9.7 (7.0-16.0) 09/05/17 04:25 BUN 33 mg/dL (7-25) H 09/05/17 04:25 Creatinine 0.9 mg/dL (0.6-1.2) 09/05/17 04:25 Est GFR ( Amer) TNP 09/05/17 04:25 Est GFR (Non-Af Amer) TNP 09/05/17 04:25 BUN/Creatinine Ratio 36.7 09/05/17 04:25 Glucose 98 mg/dL (70-105) 09/05/17 04:25 Calcium 8.6 mg/dL (8.6-10.3) 09/05/17 04:25 Total Bilirubin 0.5 mg/dL (0.3-1.0) 09/04/17 12:58 AST 10 U/L (13-39) L 09/04/17 12:58 ALT 6 U/L (7-52) L 09/04/17 12:58 Alkaline Phosphatase 72 U/L (34-104) 09/04/17 12:58 C-Reactive Protein 7.5 mg/dL (0.0-0.9) H 09/06/17 04:23 Total Protein 6.2 gm/dL (6.0-8.3) 09/04/17 12:58 Albumin 3.3 gm/dL (3.7-5.3) L 09/04/17 12:58 Globulin 2.9 gm/dL 09/04/17 12:58 Albumin/Globulin Ratio 1.1 (1.0-1.8) 09/04/17 12:58 TSH 1.62 uIU/ml (0.34-5.60) 09/06/17 04:23 Urine Source CATH 09/05/17 16:20 Urine Color YELLOW 09/05/17 16:20 Urine Clarity HAZY (CLEAR) 09/05/17 16:20 Urine pH 5.5 (4.6 - 8.0) 09/05/17 16:20 Ur Specific [place] <= 1.005 (1.005-1.030) 09/05/17 16:20 Urine Protein NEGATIVE mg/dL (NEGATIVE) 09/05/17 16:20 Urine Glucose (UA) NEGATIVE mg/dL (NEGATIVE) 09/05/17 16:20 Urine Ketones NEGATIVE mg/dL (NEGATIVE) 09/05/17 16:20 Urine Blood TRACE (NEGATIVE) 09/05/17 16:20 Urine Nitrate NEGATIVE (NEGATIVE) 09/05/17 16:20 Urine Bilirubin NEGATIVE (NEGATIVE) 09/05/17 16:20 Urine Urobilinogen 0.2 E.U./dL (0.2 - 1.0) 09/05/17 16:20 Ur Leukocyte Esterase LARGE (NEGATIVE) H 09/05/17 16:20 Urine RBC 2-5 /hpf (0-5) 09/05/17 16:20 Urine WBC >100 /hpf (0-5) H 09/05/17 16:20 Ur Epithelial Cells FEW /lpf (FEW) 09/05/17 16:20 Urine Bacteria MANY /hpf (NONE SEEN) 09/05/17 16:20 - Physical Exam Vitals and I&O: Vital Signs Temp 98.2 F 09/05/17 16:00 Pulse 91 09/06/17 04:00 Resp 16 09/06/17 08:00 BP 128/57 09/06/17 04:00 Pulse Ox 95 09/06/17 04:00 Intake & Output 09/05/17 09/06/17 09/06/17 18:59 06:59 18:59 Intake Total 1004 300 Output Total 1 1 Balance 1003 299 Weight (lbs) 117 lb 117 lb Intake: Intake, IV Amount 704 D5-0.9%Ns 1,000 ml @ 80 704 mls/hr IV .[id number] [facility] Rx #:[id number] Oral 300 300 Output: Stool 1 1 Other: # Voids 3 5 Stool Characteristics [place] Active Medications: Current Medications Acetaminophen (Tylenol) 650 mg PO Q4H PRN PRN Reason: Pain Or Fever above 101 Stop: 11/03/17 14:58 Al Hydrox/Mg Hydrox/Simethicone (Maalox) 30 ml PO Q6HR PRN PRN Reason: Dyspepsia Stop: 11/03/17 14:58 Albuterol Sulfate (Albuterol 2.5mg/3ml Neb Ud) 2.5 mg HHN Q2HRT PRN PRN Reason: Shortness of Breath Stop: 11/03/17 14:58 Allopurinol (Zyloprim) 100 mg PO DAILY [facility] Stop: 11/04/17 08:59 Last Admin: 09/06/17 10:56 Dose: Not Given Bisacodyl (Dulcolax 10 Mg Supp) 10 mg RC DAILY PRN PRN Reason: Constipation Stop: 11/04/17 13:33 Cyanocobalamin (Vitamin B12) 1,000 mcg PO DAILY [facility] Stop: 11/04/17 08:59 Last Admin: 09/06/17 10:56 Dose: Not Given Docusate Sodium (Colace) 100 mg PO BID [facility] Stop: 11/04/17 16:59 Last Admin: 09/06/17 10:56 Dose: Not Given Dextrose/Sodium Chloride (D5-0.9%Ns) 1,000 mls @ 80 mls/hr IV .[id number] [facility] Stop: 11/03/17 12:14 Last Admin: 09/05/17 16:11 Dose: 80 mls/hr Ipratropium [place] (Atrovent Neb 0.5mg/2.5ml) 0.5 mg HHN Q2HRT PRN PRN Reason: Shortness of Breath Stop: 11/03/17 14:58 Lorazepam (Ativan) 0.5 mg PO Q6HR PRN; Protocol PRN Reason: Anxiety Stop: 11/03/17 14:58 Last Admin: 09/05/17 20:07 Dose: 0.5 mg Losartan Potassium (Cozaar) 50 mg PO DAILY [facility] Stop: 11/04/17 08:59 Last Admin: 09/06/17 10:56 Dose: Not Given Memantine (Namenda) 10 mg PO BID [facility] Stop: 11/03/17 16:59 Last Admin: 09/06/17 10:56 Dose: Not Given Quetiapine Fumarate (Seroquel) 25 mg PO BID [facility] PRN Reason: Protocol Stop: 11/03/17 08:59 Last Admin: 09/06/17 10:56 Dose: Not Given Senna (Senna) 8.6 mg PO HS [facility] Stop: 11/04/17 20:59 Last Admin: 09/05/17 20:07 Dose: 8.6 mg Tramadol HCl (Ultram) 50 mg PO DAILY PRN PRN Reason: Pain (Moderate) Stop: 11/03/17 14:58 Last Admin: 09/04/17 15:57 Dose: 50 mg Vitamin D (Vitamin D3) 4,000 iu PO DAILY [facility] Stop: 11/04/17 08:59 Last Admin: 09/06/17 10:56 Dose: Not Given Zolpidem Tartrate (Ambien) 5 mg PO HS PRN PRN Reason: Insomnia Stop: 11/03/17 14:58 Internal Medicine Assmt/Plan - Assessment Assessment: Syncope acute back pain acute kidney injury generalized weakness cad dyslipidemia dementia hx frequent falls arthritis
--- NOTE | 2017-09-06 12:22 | Internal Medicine Prog Note ---
Internal Medicine Subjective - Subjective Service Date: 09/06/17 (DC SUMMARY [id number]) Internal Medicine Objective - Results Result Diagrams: 09/05/17 04:25 09/05/17 04:25 Recent Labs: Laboratory Last Values WBC 11.1 Th/cmm (4.8-10.8) H 09/05/17 04:25 RBC 3.06 Mil/cmm (3.80-5.20) L 09/05/17 04:25 Hgb 9.3 gm/dL (12-16) L 09/05/17 04:25 Hct 27.9 % (41.0-60) L 09/05/17 04:25 MCV 91.1 fl (81-100) 09/05/17 04:25 MCH 30.3 pg (27.0-31.0) 09/05/17 04:25 MCHC Differential 33.2 pg (28.0-36.0) 09/05/17 04:25 RDW 16.6 % (11.5-20.0) 09/05/17 04:25 Plt Count 273 Th/cmm (150-400) 09/05/17 04:25 MPV 8.8 fl 09/05/17 04:25 Neutrophils % 69.0 % (40.0-80.0) 09/05/17 04:25 Lymphocytes % 17.2 % (20.0-50.0) L 09/05/17 04:25 Monocytes % 10.0 % (2.0-10.0) 09/05/17 04:25 Eosinophils % 2.9 % (0.0-5.0) 09/05/17 04:25 Basophils % 0.9 % (0.0-2.0) 09/05/17 04:25 Specimen Source Arterial 09/04/17 15:25 Sample Site RB 09/04/17 15:25 pH 7.44 (7.35-7.45) 09/04/17 15:25 pCO2 37.0 mmHg (35.0-45.0) 09/04/17 15:25 pO2 236.0 mmHg (80.0-100.0) H 09/04/17 15:25 HCO3 25.9 mEq/L (20.0-26.0) 09/04/17 15:25 Base Excess 1.1 mEq/L (-3.0-3.0) 09/04/17 15:25 O2 Saturation 100.0 % (92.0-100.0) 09/04/17 15:25 Elan Test NA 09/04/17 15:25 Vent Rate NA 09/04/17 15:25 Inspired O2 71 09/04/17 15:25 Tidal Volume NA 09/04/17 15:25 PEEP NA 09/04/17 15:25 Pressure (ins/psv/peep) NA 09/04/17 15:25 Critical Value SH 09/04/17 15:25 Sodium 136 mEq/L (136-145) 09/05/17 04:25 Potassium 3.7 mEq/L (3.5-5.1) 09/05/17 04:25 Chloride 107 mEq/L (98-107) 09/05/17 04:25 Carbon Dioxide 23.0 mEq/L (21.0-31.0) 09/05/17 04:25 Anion Gap 9.7 (7.0-16.0) 09/05/17 04:25 BUN 33 mg/dL (7-25) H 09/05/17 04:25 Creatinine 0.9 mg/dL (0.6-1.2) 09/05/17 04:25 Est GFR ( Amer) TNP 09/05/17 04:25 Est GFR (Non-Af Amer) TNP 09/05/17 04:25 BUN/Creatinine Ratio 36.7 09/05/17 04:25 Glucose 98 mg/dL (70-105) 09/05/17 04:25 Calcium 8.6 mg/dL (8.6-10.3) 09/05/17 04:25 Total Bilirubin 0.5 mg/dL (0.3-1.0) 09/04/17 12:58 AST 10 U/L (13-39) L 09/04/17 12:58 ALT 6 U/L (7-52) L 09/04/17 12:58 Alkaline Phosphatase 72 U/L (34-104) 09/04/17 12:58 C-Reactive Protein 7.5 mg/dL (0.0-0.9) H 09/06/17 04:23 Total Protein 6.2 gm/dL (6.0-8.3) 09/04/17 12:58 Albumin 3.3 gm/dL (3.7-5.3) L 09/04/17 12:58 Globulin 2.9 gm/dL 09/04/17 12:58 Albumin/Globulin Ratio 1.1 (1.0-1.8) 09/04/17 12:58 TSH 1.62 uIU/ml (0.34-5.60) 09/06/17 04:23 Urine Source CATH 09/05/17 16:20 Urine Color YELLOW 09/05/17 16:20 Urine Clarity HAZY (CLEAR) 09/05/17 16:20 Urine pH 5.5 (4.6 - 8.0) 09/05/17 16:20 Ur Specific [place] <= 1.005 (1.005-1.030) 09/05/17 16:20 Urine Protein NEGATIVE mg/dL (NEGATIVE) 09/05/17 16:20 Urine Glucose (UA) NEGATIVE mg/dL (NEGATIVE) 09/05/17 16:20 Urine Ketones NEGATIVE mg/dL (NEGATIVE) 09/05/17 16:20 Urine Blood TRACE (NEGATIVE) 09/05/17 16:20 Urine Nitrate NEGATIVE (NEGATIVE) 09/05/17 16:20 Urine Bilirubin NEGATIVE (NEGATIVE) 09/05/17 16:20 Urine Urobilinogen 0.2 E.U./dL (0.2 - 1.0) 09/05/17 16:20 Ur Leukocyte Esterase LARGE (NEGATIVE) H 09/05/17 16:20 Urine RBC 2-5 /hpf (0-5) 09/05/17 16:20 Urine WBC >100 /hpf (0-5) H 09/05/17 16:20 Ur Epithelial Cells FEW /lpf (FEW) 09/05/17 16:20 Urine Bacteria MANY /hpf (NONE SEEN) 09/05/17 16:20 - Physical Exam Vitals and I&O: Vital Signs Temp 98.2 F 09/05/17 16:00 Pulse 91 09/06/17 04:00 Resp 16 09/06/17 08:00 BP 128/57 09/06/17 04:00 Pulse Ox 95 09/06/17 04:00 Intake & Output 09/05/17 09/06/17 09/06/17 18:59 06:59 18:59 Intake Total 1004 300 Output Total 1 1 Balance 1003 299 Weight (lbs) 117 lb 117 lb Intake: Intake, IV Amount 704 D5-0.9%Ns 1,000 ml @ 80 704 mls/hr IV .[id number] [facility] Rx #:[id number] Oral 300 300 Output: Stool 1 1 Other: # Voids 3 5 Stool Characteristics [place] Active Medications: Current Medications Acetaminophen (Tylenol) 650 mg PO Q4H PRN PRN Reason: Pain Or Fever above 101 Stop: 11/03/17 14:58 Al Hydrox/Mg Hydrox/Simethicone (Maalox) 30 ml PO Q6HR PRN PRN Reason: Dyspepsia Stop: 11/03/17 14:58 Albuterol Sulfate (Albuterol 2.5mg/3ml Neb Ud) 2.5 mg HHN Q2HRT PRN PRN Reason: Shortness of Breath Stop: 11/03/17 14:58 Allopurinol (Zyloprim) 100 mg PO DAILY [facility] Stop: 11/04/17 08:59 Last Admin: 09/06/17 10:56 Dose: Not Given Bisacodyl (Dulcolax 10 Mg Supp) 10 mg RC DAILY PRN PRN Reason: Constipation Stop: 11/04/17 13:33 Cyanocobalamin (Vitamin B12) 1,000 mcg PO DAILY [facility] Stop: 11/04/17 08:59 Last Admin: 09/06/17 10:56 Dose: Not Given Docusate Sodium (Colace) 100 mg PO BID [facility] Stop: 11/04/17 16:59 Last Admin: 09/06/17 10:56 Dose: Not Given Dextrose/Sodium Chloride (D5-0.9%Ns) 1,000 mls @ 80 mls/hr IV .[id number] [facility] Stop: 11/03/17 12:14 Last Admin: 09/05/17 16:11 Dose: 80 mls/hr Ipratropium Dixon (Atrovent Neb 0.5mg/2.5ml) 0.5 mg HHN Q2HRT PRN PRN Reason: Shortness of Breath Stop: 11/03/17 14:58 Lorazepam (Ativan) 0.5 mg PO Q6HR PRN; Protocol PRN Reason: Anxiety Stop: 11/03/17 14:58 Last Admin: 09/05/17 20:07 Dose: 0.5 mg Losartan Potassium (Cozaar) 50 mg PO DAILY [facility] Stop: 11/04/17 08:59 Last Admin: 09/06/17 10:56 Dose: Not Given Memantine (Namenda) 10 mg PO BID [facility] Stop: 11/03/17 16:59 Last Admin: 09/06/17 10:56 Dose: Not Given Quetiapine Fumarate (Seroquel) 25 mg PO BID [facility] PRN Reason: Protocol Stop: 11/03/17 08:59 Last Admin: 09/06/17 10:56 Dose: Not Given Senna (Senna) 8.6 mg PO HS [facility] Stop: 11/04/17 20:59 Last Admin: 09/05/17 20:07 Dose: 8.6 mg Tramadol HCl (Ultram) 50 mg PO DAILY PRN PRN Reason: Pain (Moderate) Stop: 11/03/17 14:58 Last Admin: 09/04/17 15:57 Dose: 50 mg Vitamin D (Vitamin D3) 4,000 iu PO DAILY [facility] Stop: 11/04/17 08:59 Last Admin: 09/06/17 10:56 Dose: Not Given Zolpidem Tartrate (Ambien) 5 mg PO HS PRN PRN Reason: Insomnia Stop: 11/03/17 14:58 Internal Medicine Assmt/Plan - Assessment Assessment: Syncope acute back pain acute kidney injury generalized weakness cad dyslipidemia dementia hx frequent falls arthritis
--- NOTE | 2017-09-06 14:23 | Discharge Summary ---
DATE OF DISCHARGE: 09/06/2017 DISCHARGE DIAGNOSES: Acute urinary tract infection, syncope, acute back pain, generalized weakness, failure to thrive, hypertension, coronary artery disease, dyslipidemia, arthritis, dementia, frequent falls, and acute kidney injury. HISTORY OF PRESENT ILLNESS: An 87-year-old female who was recently at [facility]. Rapid ____ calls on patient. The patient had an episode of altered mental status. The patient was transferred to the ICU for monitoring. The patient also had a 12-lead EKG done and it was normal sinus rhythm, no acute ischemic changes. PHYSICAL EXAMINATION: GENERAL: The patient is well developed, well nourished, no acute distress. VITAL SIGNS: Stable. HEENT: Head is normocephalic and atraumatic. NECK: Supple. No mass. LUNGS: Clear bilaterally. HEART: Regular rate and rhythm. ABDOMEN: Soft and nontender. During the hospital stay, the patient was admitted to the ICU unit. The patient was on aggressive IV fluids for hydration, also electrolytes were being monitored. The patient was being followed by Psychiatry, Cardiology as well as Neurology. The patient had a 2D echocardiogram done and the impression is hypertrophy of the left ventricle ejection fraction 60%. The patient also had a carotid ultrasound and the impression is small to moderate diffuse atherosclerotic changes, no significant focal narrowing or stenosis identified. The patient regains consciousness and the patient was stabilized. For this reason, the patient is stable for discharge. The patient's UA was noted with urinary tract infection. So, the patient will be discharged with Levaquin 500 mg p.o. for 7 days. CONDITION UPON DISCHARGE: Fair. DISPOSITION: [facility]. JOB# [id number]
--- NOTE | 2017-09-06 14:23 | Discharge Summary ---
DATE OF DISCHARGE: 09/06/2017 DISCHARGE DIAGNOSES: Acute urinary tract infection, syncope, acute back pain, generalized weakness, failure to thrive, hypertension, coronary artery disease, dyslipidemia, arthritis, dementia, frequent falls, and acute kidney injury. HISTORY OF PRESENT ILLNESS: An 87-year-old female who was recently at [facility]. Rapid ____ calls on patient. The patient had an episode of altered mental status. The patient was transferred to the ICU for monitoring. The patient also had a 12-lead EKG done and it was normal sinus rhythm, no acute ischemic changes. PHYSICAL EXAMINATION: GENERAL: The patient is well developed, well nourished, no acute distress. VITAL SIGNS: Stable. HEENT: Head is normocephalic and atraumatic. NECK: Supple. No mass. LUNGS: Clear bilaterally. HEART: Regular rate and rhythm. ABDOMEN: Soft and nontender. During the hospital stay, the patient was admitted to the ICU unit. The patient was on aggressive IV fluids for hydration, also electrolytes were being monitored. The patient was being followed by Psychiatry, Cardiology as well as Neurology. The patient had a 2D echocardiogram done and the impression is hypertrophy of the left ventricle ejection fraction 60%. The patient also had a carotid ultrasound and the impression is small to moderate diffuse atherosclerotic changes, no significant focal narrowing or stenosis identified. The patient regains consciousness and the patient was stabilized. For this reason, the patient is stable for discharge. The patient's UA was noted with urinary tract infection. So, the patient will be discharged with Levaquin 500 mg p.o. for 7 days. CONDITION UPON DISCHARGE: Fair. DISPOSITION: [facility]. JOB# [id number]
--- NOTE | 2017-09-06 14:23 | Discharge Summary ---
DATE OF DISCHARGE: 09/06/2017 DISCHARGE DIAGNOSES: Acute urinary tract infection, syncope, acute back pain, generalized weakness, failure to thrive, hypertension, coronary artery disease, dyslipidemia, arthritis, dementia, frequent falls, and acute kidney injury. HISTORY OF PRESENT ILLNESS: An 87-year-old female who [facility]. Rapid ____ calls on patient. The patient had an episode of altered mental status. The patient was transferred to the ICU for monitoring. The patient also had a 12-lead EKG done and it was normal sinus rhythm, no acute ischemic changes. PHYSICAL EXAMINATION: GENERAL: The patient is well developed, well nourished, no acute distress. VITAL SIGNS: Stable. HEENT: Head is normocephalic and atraumatic. NECK: Supple. No mass. LUNGS: Clear bilaterally. HEART: Regular rate and rhythm. ABDOMEN: Soft and nontender. During the hospital stay, the patient was admitted to the ICU unit. The patient was on aggressive IV fluids for hydration, also electrolytes were being monitored. The patient was being followed by Psychiatry, Cardiology as well as Neurology. The patient had a 2D echocardiogram done and the impression is hypertrophy of the left ventricle ejection fraction 60%. The patient also had a carotid ultrasound and the impression is small to moderate diffuse atherosclerotic changes, no significant focal narrowing or stenosis identified. The patient regains consciousness and the patient was stabilized. For this reason, the patient is stable for discharge. The patient's UA was noted with urinary tract infection. So, the patient will be discharged with Levaquin 500 mg p.o. for 7 days. CONDITION UPON DISCHARGE: Fair. DISPOSITION: [facility]. JOB# [id number]
[2017-09-06] MEDS ORDERED: Levofloxacin 500mg/100mL 500 MG/100 ML BAG IV SCH (16:00)
[2017-09-06] MEDS ORDERED: Morphine Sulfate 2 mg/mL 1mL Syr IVP ONE (22:55)
[2017-09-06] MEDS ORDERED: Morphine Sulfate 2 mg/mL 1mL Syr ONE (23:04)
[2017-09-07] MEDS: Vitamin D3 2,000 IU SGL PO SCH (10:46)
--- NOTE | 2017-09-07 14:42 | Discharge Summary ---
DATE OF DISCHARGE: 09/07/2017 ADDENDUM CHIEF COMPLAINT: Almost blacking out. FINAL DIAGNOSES: Near syncope, urinary tract infection, acute on chronic back pain, generalized weakness, failure to thrive, hypertension, coronary artery disease, high cholesterol, osteoarthritis, dementia, frequent falls, renal insufficiency. HISTORY: This is an 87-year-old female with multiple medical problems who was admitted initially to [facility] secondary to change in mental status. The patient has apparently almost passed out. Makayla olvera was called and transferred the patient for change in mental status to the medical site. PHYSICAL EXAMINATION: VITAL SIGNS: Blood pressure 153/64, respirations 18, pulse 63, temperature 97.8. GENERAL: Elderly female, appears stated age. Bilateral temporal wasting. LUNGS: Equal breath sounds, few rhonchi. HEART: Regular rate and rhythm without systolic ejection murmur. ABDOMEN: Soft, globular. EXTREMITIES: Positive excoriations. NEUROLOGIC: Limited, moving 4 extremities. HOSPITAL COURSE: The patient was admitted to the medical floor. The patient was referred to Dr. Dang for psychiatry. Head CT showed old stroke, but no acute changes. The patient was also started on IV hydration and IV antibiotic. The patient's condition has improved, has remained stable. The case was discussed with the patient's son who will send the patient to her nursing facility/board and care. Rest of workup was negative including carotid as well as 2D echo. CONDITION ON DISCHARGE: Fair. DISCHARGE INSTRUCTIONS: The patient to continue IV antibiotic, to be discharged to nursing facility. This was discussed with family members. They were agreeable to above plan. JOB# [id number]
[2017-09-07 15:16] LABS: FOLIC ACID 5.3 ng/mL (>3.0)
[2017-09-08 08:09] LABS: ALDOLASE 5.1 U/L (3.3-10.3); T4 FREE 1.23 ng/dL (0.82-1.77)
== END 2017-09-07 11:50 | DRG 871 ==
LOC: ICU 11:29
PROVIDERS: ADMIT Internal Medicine; ATTEND Internal Medicine
DX: A41.9 Sepsis, unspecified organism (principal); E43 Unspecified severe protein-calorie malnutrition; N17.9 Acute kidney failure, unspecified; N39.0 Urinary tract infection, site not specified; F03.90 Unspecified dementia, unspecified severity, without behavioral disturbance, psychotic disturbance, mood disturbance, and anxiety; I11.9 Hypertensive heart disease without heart failure; M54.9 Dorsalgia, unspecified; I25.10 Atherosclerotic heart disease of native coronary artery without angina pectoris; E78.5 Hyperlipidemia, unspecified; M19.90 Unspecified osteoarthritis, unspecified site; G89.29 Other chronic pain; R62.7 Adult failure to thrive; Z90.49 Acquired absence of other specified parts of digestive tract; Z90.710 Acquired absence of both cervix and uterus; Z86.73 Personal history of transient ischemic attack (TIA), and cerebral infarction without residual deficits; Z91.81 History of falling; Z88.1 Allergy status to other antibiotic agents
CPT/HCPCS: 36415-UA; 36600-90; 74000-TC; 80048-TC; 80053-TC; 81001-TC; 82085-90; 82607-90; 82746-90; 82803-TC; 84439-90; 84443-TC; 85025-TC; 86141-TC; 87086-90; 93880-TC; 94760; 97530; J1956; J2270; J7042; Z7610